=== PATIENT | female | born 1995 | race Caucasian/White ===

== ENCOUNTER 2018-07-11 16:48 | Inpatient (IN) ==
[2018-07-11] MEDS ORDERED: Sod Chloride 0.9% Inj 1,000 ML IV.SIG ONE (17:48)
[2018-07-11] MEDS ORDERED: Hydrocortisone Sod Succinate 100 MG Vial IV.PUSH ONE (17:48)
--- NOTE | 2018-07-11 18:01 | ED ---
HPI General Chief complaint: Seizure Stated complaint: Dizziness/vomiting/hbp complaint Time Seen by Provider: 07/11/18 17:38 Source: patient, family, RN notes reviewed and old records reviewed Mode of arrival: ambulatory Limitations: no limitations History of Present Illness HPI narrative: 23-year-old female presents to the emergency department evaluation of vomiting, seizure, associates. Patient has history of adrenal insufficiency. Patient states that she has these problems when she has adrenal problems. She has been vomiting for the past 1-2 weeks. According to her mother at bedside, she recently gave approximately 3 months ago which she states possibly put her into adrenal issues. She was admitted to [facility] last week and is currently on hydrocortisone 10 mg twice daily. Mother states however, she has been worsening since discharge. She is having syncopal episodes daily. She had a seizure last night. She has past medical history of seizures, adrenal insufficiency, gastroparesis, hyperprolactinemia, chronic hepatitis, chronic pancreatitis, hypothyroidism, gastritis. She is on Keppra, but has not been keeping it down. Moderate severity. Onset (ago): week(s) Severity: moderate Pain Consistency: constant Relieving factors: none Exacerbating factors: none Associated symptoms: Reports nausea/vomiting, syncope and other (seizure) Related Data Home Medications Medication Instructions Recorded Confirmed escitalopram oxalate [Lexapro] 20 mg PO HS 02/02/18 07/11/18 omeprazole 40 mg PO DAILY 02/02/18 07/11/18 Phenergan 25 mg PO Q6H PRN 07/11/18 07/11/18 tugfrlksuw-jqlyjvosvhozs-dvbo 2 cap PO Q4H PRN 07/11/18 07/11/18 [Fioricet] cyclobenzaprine 10 mg PO TID PRN 07/11/18 07/11/18 dicyclomine 20 mg PO QID PRN 07/11/18 07/11/18 hydrocortisone 10 mg PO BID 07/11/18 07/11/18 levetiracetam [Keppra] 1,000 mg PO BID 07/11/18 07/11/18 levothyroxine [Synthroid] 100 mcg PO DAILY 07/11/18 07/11/18 ondansetron HCl [Zofran] 8 mg PO TID PRN 07/11/18 07/11/18 oxycodone 10 mg PO Q4-6H PRN 07/11/18 07/11/18 quetiapine [Seroquel XR] 150 mg PO QPM 07/11/18 07/11/18 Allergies Allergy/AdvReac Type Severity Reaction Status Date / Time amitriptyline [From Elavil] Allergy Severe Hallucinati Verified 02/01/18 22:15 ons ketorolac [From Toradol] Allergy Severe Hives Verified 02/01/18 22:18 propranolol [From Inderal [place]] Allergy Severe Edema, Verified 02/01/18 22:20 Generalized niacin Allergy Edema, Verified 02/01/18 22:17 Generalized Review of Systems ROS: all other systems reviewed are negative [facility] Medical History Medical History Endocrine disease (Acute) Nausea & vomiting (Acute) Seizures (Acute) Social History Social History Substance History: No History of Abuse Second Hand Smoke Exposure: No Smoking Status: Never smoker How Often Do You Have a Drink Containing Alcohol: Never Hx Recent Travel: No Exam Narrative Exam Narrative: GENERAL: Well-nourished, well-developed female patient, afebrile SKIN: Focused skin assessment warm/dry. HEAD: Normocephalic. Atraumatic ENT: Mucosa pink and moist. No erythema or exudates. No uvular edema. No uvular , palatal, or tonsillar deviation. Airway patent. Nasal turbinates appear normal without nasal blood, purulent drainage or septal hematoma. Bilateral tympanic membranes clear without erythema or perforation. EYES: No scleral icterus. No injection or drainage. NECK: Supple, trachea midline. No JVD or lymphadenopathy. CARDIOVASCULAR: Regular rate and rhythm without murmurs, gallops, or rubs. Bilateral radial and pedal pulses are 2+ RESPIRATORY: Breath sounds equal bilaterally. No accessory muscle use. Lung sounds are clear to auscultation GASTROINTESTINAL: Abdomen soft, non-tender, nondistended. MUSCULOSKELETAL: No cyanosis, or edema. BACK: Nontender without obvious deformity. No CVA tenderness. NEUROLOGICAL: Awake and alert. Cranial nerves II through XII intact. Motor and sensory grossly within normal limits. Five out of 5 muscle strength in all muscle groups. Normal speech. Finger to nose is normal bilaterally. [id number] is normal bilaterally. Course Initial Documented Vital Signs Temperature 97.4 F L 07/11/18 16:51 Pulse Rate 98 H 07/11/18 16:51 Respiratory Rate 20 07/11/18 16:51 Blood Pressure 138/63 07/11/18 16:51 Pulse Oximetry 100 07/11/18 16:51 Last Documented Vital Signs Temperature 97.4 F L 07/11/18 16:51 Pulse Rate 78 07/11/18 19:00 Respiratory Rate 16 07/11/18 19:00 Blood Pressure 109/67 07/11/18 19:00 Pulse Oximetry 99 07/11/18 19:00 Medical Decision Making NAFISA Attestation NAFISA supervised visit: Yes Attestation: The history, exam, and medical decision-making in the associated mid-level provider note were completed with my assistance. I reviewed and agree with the findings presented. I attest that I had a [id number] encounter with the patient on the same day, and personally performed and documented my assessment and findings in the medical record. *My assessment and Findings: 23-year-old woman, generally well-appearing, endocrine disorders including what sounds like probably idiopathic or autoimmune hepatitis, adrenal insufficiency, epilepsy of unclear etiology. Recent . She has worsening symptoms including increasing seizure frequency. Multiple doses of vomiting. She was seen in [facility] recently discharged. She was restarted on hydrocortisone which she had not been on for a while. We will check cortisol level. We will does stress dose steroids. We will also dose her with Keppra. Will likely need to be admitted given her frequent recurrent seizures, inability to tolerate her seizure medications, ill appearance, and medical comorbidities. MDM Narrative Medical decision making narrative: 23-year-old female presents to the emergency department with her mother for evaluation of possible adrenal crisis. She has been vomiting for the past couple of weeks with a seizure last night and multiple syncopal episodes daily. IV access obtained. EKG, CBC, CMP, magnesium , CK, troponin, Keppra, lipase, UA, urine test, chest x-ray ordered and pending. Cortisol level is ordered and was sent before hydrocortisone was given. Patient is given normal saline 1 L IV bolus, hydrocortisone 100 mg IV, Zofran 4 mg IV. EKG shows sinus rhythm, heart rate 86, no acute ST changes. CBC shows no acute abnormal. CMP shows no acute abnormality. Lipase is 88. Magnesium is 1.8. CK is 51. Troponin is less than 0.02. UA is pending. UPT is negative. Chest x-ray shows no acute findings. My attending physician, Dr. Kim, also examined patient. He recommends admission for multiple syncopal episodes, seizure adrenal insufficiency. Patient and her mother verbalized agreement. Medical Screen Exam Complete: Yes Emergency Medical Condition: Yes Differential Diagnosis Differential Diagnosis: adrenal crisis vs. electrolyte abnormality vs. dehydration vs. intractable vomiting Medical Records Medical records reviewed: Yes I reviewed the patient's medical records. Lab Data Result diagrams: 07/11/18 17:58 07/11/18 17:58 POC Results POC Urine Results Negative Lab Results 07/11/18 07/11/18 07/11/18 Range/Units 17:58 17:58 17:58 WBC 6.3 (4.0-11.0) th/mm3 RBC 5.02 (4.00-5.30) mil/mm3 Hgb 14.4 (11.6-15.3) gm/dL Hct 43.2 (35.0-46.0) % MCV 86.1 (80.0-100.0) fL MCH 28.8 (27.0-34.0) pg MCHC 33.4 (32.0-36.0) % RDW 14.8 (11.6-17.2) % Plt Count 319 (150-450) th/mm3 MPV 7.6 (7.0-11.0) fL Neut % (Auto) 52.1 (16.0-70.0) % Lymph % (Auto) 36.0 (9.0-44.0) % [place] % (Auto) 9.2 H (0.0-8.0) % Eos % (Auto) 2.0 (0.0-4.0) % Baso % (Auto) 0.7 (0.0-2.0) % Neut # (Auto) 3.3 (1.8-7.7) th/mm3 Lymph # (Auto) 2.3 (1.0-4.8) th/mm3 [place] # (Auto) 0.6 (0.0-0.9) th/mm3 Eos # (Auto) 0.1 (0.0-0.4) th/mm3 Baso # (Auto) 0.0 (0.0-0.2) th/mm3 WBC Differential . Differential Comment Auto diff final Sodium 138 (136-145) meq/L Potassium 4.0 (3.5-5.1) meq/L Chloride 102 (98-107) meq/L Carbon Dioxide 29.3 (21.0-32.0) meq/L Anion Gap 7 (5-15) meq/L BUN 14 (7-18) mg/dL Creatinine 0.92 (0.50-1.00) mg/dL Estimated GFR 76 L (>89) mL/min Random Glucose 72 L (74-106) mg/dL Calcium 9.3 (8.5-10.1) mg/dL Magnesium 1.8 (1.5-2.5) mg/dL Total Bilirubin 0.2 (0.2-1.0) mg/dL AST 23 (15-37) U/L ALT 40 (10-53) U/L Alkaline Phosphatase 82 (45-117) U/L Total Creatine Kinase 51 Cancelled (26-192) U/L Troponin I Less than 0.02 L (0.02-0.05) ng/mL Total Protein 7.8 (6.4-8.2) g/dL Albumin 4.2 (3.4-5.0) g/dL Lipase 88 Cancelled (73-393) U/L Urine Color (Yellw/Straw) Urine Clarity (Clear) Urine pH (5.0-8.5) Ur Specific [place] (1.002-1.035) Urine Protein (Neg-Trace) mg/dL Urine Glucose (UA) (Negative) mg/dL Urine Ketones (Negative) mg/dL Urine Occult Blood (Negative) Urine Nitrate (Negative) Urine Bilirubin (Negative) Urine Urobilinogen (Less than 2) mg/dL Ur Leukocyte Esterase (Negative) Urine WBC (0-5) /hpf Ur Squamous Epith Cells (0-5) /hpf Urine Mucus (Occasional) /lpf Micro UA Comment Ur Microscopic Review Urine Culture Comments 07/11/18 Range/Units 18:36 WBC (4.0-11.0) th/mm3 RBC (4.00-5.30) mil/mm3 Hgb (11.6-15.3) gm/dL Hct (35.0-46.0) % MCV (80.0-100.0) fL MCH (27.0-34.0) pg MCHC (32.0-36.0) % RDW (11.6-17.2) % Plt Count (150-450) th/mm3 MPV (7.0-11.0) fL Neut % (Auto) (16.0-70.0) % Lymph % (Auto) (9.0-44.0) % [place] % (Auto) (0.0-8.0) % Eos % (Auto) (0.0-4.0) % Baso % (Auto) (0.0-2.0) % Neut # (Auto) (1.8-7.7) th/mm3 Lymph # (Auto) (1.0-4.8) th/mm3 [place] # (Auto) (0.0-0.9) th/mm3 Eos # (Auto) (0.0-0.4) th/mm3 Baso # (Auto) (0.0-0.2) th/mm3 WBC Differential Differential Comment Sodium (136-145) meq/L Potassium (3.5-5.1) meq/L Chloride (98-107) meq/L Carbon Dioxide (21.0-32.0) meq/L Anion Gap (5-15) meq/L BUN (7-18) mg/dL Creatinine (0.50-1.00) mg/dL Estimated GFR (>89) mL/min Random Glucose (74-106) mg/dL Calcium (8.5-10.1) mg/dL Magnesium (1.5-2.5) mg/dL Total Bilirubin (0.2-1.0) mg/dL AST (15-37) U/L ALT (10-53) U/L Alkaline Phosphatase (45-117) U/L Total Creatine Kinase (26-192) U/L Troponin I (0.02-0.05) ng/mL Total Protein (6.4-8.2) g/dL Albumin (3.4-5.0) g/dL Lipase (73-393) U/L Urine Color Straw (Yellw/Straw) Urine Clarity Clear (Clear) Urine pH 6.0 (5.0-8.5) Ur Specific [place] 1.004 (1.002-1.035) Urine Protein Negative (Neg-Trace) mg/dL Urine Glucose (UA) Negative (Negative) mg/dL Urine Ketones Negative (Negative) mg/dL Urine Occult Blood Negative (Negative) Urine Nitrate Negative (Negative) Urine Bilirubin Negative (Negative) Urine Urobilinogen Less than 2 (Less than 2) mg/dL Ur Leukocyte Esterase Negative (Negative) Urine WBC Less than 1 (0-5) /hpf Ur Squamous Epith Cells 1 (0-5) /hpf Urine Mucus Few H (Occasional) /lpf Micro UA Comment Culture not ind Ur Microscopic Review Not Reportable Urine Culture Comments Culture not ind Imaging Data Radiologist's impression: Chest X-Ray 07/11/18 17:48 CONCLUSION: No acute findings. Elevated right hemidiaphragm. Discharge Plan Discharge Disposition Patient Disposition: ED Admit(ED Internal Use Only) Discharge Order Discharge Orders: ED Use Only Admit Order (Routine); Ordered 07/11/18 Ordered By: Roberta Chin Discharge Details Diagnosis: Syncope, Seizure, Adrenal insufficiency Physicians Team ED Provider: Kwadwo Kim ED Midlevel Provider: Roberta Chin Primary Care Provider: NOT REQUIRED, Attending Provider: Jose Carlos Davies Status ED Status: Admitted Observation Patient
--- NOTE | 2018-07-11 18:16 | XR ---
EXAM DATE: 07/11/2018 6:13 PM EST AGE/SEX: 23 years / Female INDICATIONS: Weakness, and dizziness CLINICAL DATA: This is the patient's initial encounter. Patient reports that signs and symptoms have been present for 1 day and indicates a pain score of 0/10. MEDICAL/SURGICAL HISTORY: None. None. COMPARISON: No prior exams available for comparison. FINDINGS: A single AP view of the chest demonstrates the lungs to be symmetrically aerated without evidence of mass, infiltrate or effusion. The cardiomediastinal contours are unremarkable. Osseous structures a re intact. CONCLUSION: No acute findings. Elevated right hemidiaphragm. Electronically signed by: Tano Maddox MD Board Certified Radiologist 07/11/2018 6:15 PM EST
[2018-07-11 18:39] LABS: Baso % (Auto) 0.7 % (0.0-2.0); Eos # (Auto) 0.1 th/mm3 (0.0-0.4); Hematocrit 43.2 % (35.0-46.0); Hemoglobin 14.4 gm/dL (11.6-15.3); Lymph # (Auto) 2.3 th/mm3 (1.0-4.8); Mean Corpuscular HGB Conc 33.4 % (32.0-36.0); Mean Corpuscular Hemoglobin 28.8 pg (27.0-34.0); Mean Corpuscular Volume 86.1 fL (80.0-100.0); Mean Platelet Volume 7.6 fL (7.0-11.0); Mono # (Auto) 0.6 th/mm3 (0.0-0.9); Mono % (Auto) 9.2 % (0.0-8.0); Neut # (Auto) 3.3 th/mm3 (1.8-7.7); Neut % (Auto) 52.1 % (16.0-70.0); Platelet Count 319 th/mm3 (150-450); Red Blood Count 5.02 mil/mm3 (4.00-5.30); Red Cell Distribution Width 14.8 % (11.6-17.2); White Blood Count 6.3 th/mm3 (4.0-11.0)
[2018-07-11 18:59] LABS: Alanine Aminotransferase 40 U/L (10-53); Albumin 4.2 g/dL (3.4-5.0); Anion Gap 7 meq/L (5-15); Aspartate Aminotransferase 23 U/L (15-37); Blood Urea Nitrogen 14 mg/dL (7-18); Calcium 9.3 mg/dL (8.5-10.1); Carbon Dioxide 29.3 meq/L (21.0-32.0); Chloride 102 meq/L (98-107); Glomerular Filtration Rate 76 mL/min (>89); Glucose,Random 72 mg/dL (74-106); Lipase 88 U/L (73-393); Magnesium 1.8 mg/dL (1.5-2.5); Sodium 138 meq/L (136-145)
[2018-07-11] MEDS ORDERED: levETIRAcetam 1000mg/100mL Inj 100 ML IV.SIG ONE (19:00)
[2018-07-11 19:03] LABS: Alkaline Phosphatase 82 U/L (45-117); Total Protein 7.8 g/dL (6.4-8.2)
[2018-07-11 19:04] LABS: Creatine Kinase 51 U/L (26-192)
[2018-07-11] MEDS ORDERED: Morphine Sulfate Inj 2 MG/ML Vial IV.PUSH ONE (19:07)
[2018-07-11 19:40] LABS: Bilirubin,Urine Negative (Negative); Clarity,Urine Clear (Clear); Color,Urine Straw (Yellw/Straw); Glucose,Urine (UA) Negative (Negative); Leukocyte Esterase,Urine Negative (Negative); Mucus,Urine Few /lpf (Occasional); Nitrite,Urine Negative (Negative); Specific Gravity,Urine 1.004 (1.002-1.035); Squamous Epithelial Cell,Urine 1 /hpf (0-5)
--- NOTE | 2018-07-11 20:07 | P.HPFP ---
History of Present Illness Primary Care Physician: NOT REQUIRED <KekeJose Carlos K - 07/12/18 14:49> NOT REQUIRED <Andra Batista V - 07/11/18 20:07> Chief Complaint: Synconpe, seizures, intractable N&V <Andra Batista V - 07/11/18 23:13> History of Present Illness: Pt is 23 yr old female with significant PMH of adrenal insufficiency, hypothyroidism, migraines, gastroparesis, seizures, and a recent , delivered 3 months ago at 29 weeks due to seizures at [facility]. Patient presents to the emergency department due to syncopal episodes the last 2 weeks, almost every day, as well as a witnessed seizure yesterday, and unretractable nausea and vomiting. Patient believes this is related to her adrenal insufficiency. Patient has a history of adrenal insufficiency diagnosed at age 16, however due to not having insurance patient is not following up by an documentation analyst. Patient was doing well before her , however she did not have OB care due to being high risk and lack of insurance. Patient had an emergency CS, due to prolonged seizure activity lasting on and off over 12 hours, she was in the hospital for 8 days. During which she received steroids, blood transfusions, and iron transfusions. Patient was sent home on Keppra 1000 BID. Pt was doing fine, was having issues with gastroparesis, chronic for her. Her GI doctor, Dr Guo in [place] was considering Botox injections. Pt lost insurance did not see doctors anymore. Last time seen by [facility] [facility] was 2 yrs ago. Two week ago, pt started having a headache that would not go away, felt different than a migraine. At this point patient was not taking any steroids for her AI. Patient was also having nausea and vomiting. This lasted for a whole week, pt could not eat or drink anything. Pt passed out once at home before going to the hospital, she was admitted at [facility] in [place]. While at [facility] pt found to have low cortisol and low ACTH, she was given IV cortisone for 3 days, and switched to by mouth prednisone. According to patient, she was discharged unable to eat a full meal, was only able to eat Jello. Sent home on: Hydrocortisone 20mg PO divided in 10mg BID, Phenergan 25mg q 6 hours, Zofran dissolvable 4mg every 4 hrs, continue Keppra 1000mg BID, and levothyroxine 0.25mcg once day. Phenergan help with vomiting but not nausea. Pt allergic with dexamethasone, has hives at site of injection when that happens. Fioricet and oxycodone given for migraines. Pt allergic to sumatriptan. Has tried Depakote, and Topamax in the past prescribed by her neurologist. Dr. San[place]. Since her hospitalization pt feels that she has numbness and tingling in her hands. She states she passed out several times, passing out episodes usually start with her chest tightening, feeling cold and then sees dark. Pt passes out for a minute or two, pt slowly comes back on her own. Pt states she can hear her mom talking when this happens. This used to happen a lot when pt was first diagnosed with AI. 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 Pt is not . Just got first period about week before this all started. Period resolved and now has no period. Taking thyroid medication during , but was not able to see an OB doctor to increase dose/ make changes. Patient has been having nausea and vomiting every day, unable to tolerate any p.o. Patient throws up 20 mins after taking medicines. Pt takes escitalopram for bipolar II - depression by psychiatrist Dr. Castro, during her she was on buspirone, escitalopram, and Seroquel 150 mg daily. PMH: hyperprolactinemia, adrenal insufficiency, hyperthyroidism, gastroparesis, Bipolar II/ depression. 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 Chronic anemia. Seizures. Migraines. PSx: section 3 months ago. 3 ear surgeries as child, ear tubes and ear drum reconstruction. Gallbladder removed 2011. Social history: lives and 3 months baby, stay at home, worked at [employer]. Was in school at some point. denies ever smoking, denies marijuana, never tried any drugs. Denies alcohol. Sexually active, was on BC pills until last hospital admission, when she was told this may be the cause of all her symptoms, patient not on control at the moment. Family history: mother with melanoma, endometriosis. father: stroke, blood cloths, cholesterol, HTN. Paternal aunt with autoimmune: Diana, Type1 diabetes. maternal aunt with thyroid disorders. Sister: Chron's diagnosed at 7, some type of thyroid. <Andra Batista V 07/11/18 23:33> - Diagnosis (1) Nausea & vomiting (2) Seizure (3) Chest pain, rule out acute myocardial infarction (4) Syncope (5) Adrenal insufficiency (6) Abdominal pain (7) Hypothyroid (8) Gastroparesis (9) Bipolar 2 disorder, major depressive episode (10) DVT prophylaxis (11) Nutrition, metabolism, and development symptoms <Jose Carlos Davies 07/12/18 14:49> (1) Nausea & vomiting (2) Seizure (3) Chest pain, rule out acute myocardial infarction (4) Syncope (5) Adrenal insufficiency (6) Abdominal pain (7) Hypothyroid (8) Gastroparesis (9) Bipolar 2 disorder, major depressive episode (10) DVT prophylaxis (11) Nutrition, metabolism, and development symptoms <[address] 07/12/18 00:03> Review of Systems Constitutional: Reports anorexia, Reports chills, Reports fatigue, Reports headache(s), Reports lack of energy, Reports night sweats, Reports weight gain <[address] 07/11/18 20:48> Eyes: Denies blurry vision, Denies double vision, Denies pain <[address] 07/11/18 20:48> Cardiovascular: Reports chest pain, Reports fainting, Reports fast heart rate, Reports lightheadedness, Reports rapid, pounding, or irregular heartbeat < [address] 07/11/18 20:48> Comments: Chest feels tight <[address] 07/11/18 20:48> Respiratory: Reports shortness of breath, Denies chest congestion, Denies cough , Denies excessive phlegm production, Denies wheezing <[address] 07/11/18 20:48> Gastrointestinal: Reports abdominal pain, Reports vomiting, Denies bright, red blood in stools, Denies constipation, Denies excessive passing of gas, Denies incontinent of stools <Sawyer HeinBibi 07/11/18 20:48> Comments: Chronic <Sawyer HeinBibi 07/11/18 20:48> Genitourinary: Reports abnormal periods, Reports abnormal vaginal bleeding, Denies painful urination, Denies urinary incontinence, Denies urinary urgency, Denies vaginal discharge <Sawyer HeinBibi 07/11/18 20:48> Musculoskeletal: Reports numbness, Reports tingling, Reports other <Sawyer HeinBibi 07/11/18 20:48> Comments: Numbness and tingling in arms, pain in shoulder, believes she hurt it with vomiting <Sawyer HeinBibi 07/11/18 20:48> Skin/Breast: Denies bleeding lesions, Denies boil, Denies breast skin changes, Denies breast pain <Sawyer HeinBibi 07/11/18 20:48> Neurologic: Reports dizziness, Reports fainting, Reports headache(s), Reports tingling/numbness/burning sensations <Sawyer HeinBibi 07/11/18 20: 48> Psychiatric: Reports anxiety, Reports behavioral changes, Denies depression < Sawyer HeinBibi 07/11/18 20:48> Comments: Feels short temper due to cortisone <Sawyer HeinBibi 07/11/18 20:48> Endocrine: Reports excessive sweating, Reports flushing, Reports increased urination, Reports rapid, pounding, or irregular heartbeat, Denies cold intolerance <Sawyer HeinBibi 07/11/18 20:48> PMFSH - History History Provided By: Patient, Family Member <Sawyer HeinBibi 23:33> - Medical History Medical History: Medical History (Last Updated 07/11/18 @ 23:29 by Andra Hein MD, R1) Adrenal insufficiency Bipolar 2 disorder, major depressive episode Endocrine disease Gastroparesis Hypothyroidism Nausea & vomiting Seizures <Jose Carlos Davies - 07/12/18 14:49> Medical History (Last Updated 07/11/18 @ 23:29 by Andra Hein MD, R1) Adrenal insufficiency Bipolar 2 disorder, major depressive episode Endocrine disease Gastroparesis Hypothyroidism Nausea & vomiting Seizures <Andra Batista V 07/11/18 23:33> - Surgical History Surgical History: Surgical History (Last Updated 07/11/18 @ 23:29 by Andra Hein MD , R1) History of placement of ear tubes Hx of cholecystectomy Previous section <Jose Carlos Davies 07/12/18 14:49> Surgical History (Last Updated 07/11/18 @ 23:29 by Andra Hein MD , R1) History of placement of ear tubes Hx of cholecystectomy Previous section <Sawyer Srivastavaira Andra Hein V 07/11/18 23:33> - Social History I have reviewed the patient's Social History: Yes <Andra Batista V 07/11/18 23:33> - Tobacco History Second Hand Smoke Exposure: No <Andra Batista V 07/11/18 20:07> Smoking Status: Never smoker <Andra Batista V 07/11/18 20:07> - Alcohol History How Often Do You Have a Drink Containing Alcohol: Never <Andra Batista V 07/11/18 20:07> - Substance Use History Substance History: No History of Abuse <Andra Batista V 07/11/18 20 :07> - Travel History History of Recent Travel: No <Andra Batista V 07/11/18 20:07> - Immunization History Tetanus Immunization: <5 Years <Sawyer Srivastavaira Andra Hein V 07/11/18 20:07> Medications and Allergies Allergies Allergy/AdvReac Type Severity Reaction Status Date / Time amitriptyline [From Elavil] Allergy Severe Hallucinati Verified 02/01/18 22:15 ons ketorolac [From Toradol] Allergy Severe Hives Verified 02/01/18 22:18 propranolol [From Inderal LA] Allergy Severe Edema, Verified 02/01/18 22:20 Generalized niacin Allergy Edema, Verified 02/01/18 22:17 Generalized <Jose Carlos Davies - 07/12/18 14:49> Home Medications Medication Instructions Recorded Confirmed Type escitalopram oxalate [Lexapro] 20 mg PO HS 02/02/18 07/11/18 History omeprazole 40 mg PO DAILY 02/02/18 07/11/18 History Phenergan 25 mg PO Q6H PRN 07/11/18 07/11/18 History [id number] 2 cap PO Q4H PRN 07/11/18 07/11/18 History [Fioricet] cyclobenzaprine 10 mg PO TID PRN 07/11/18 07/11/18 History dicyclomine 20 mg PO QID PRN 07/11/18 07/11/18 History hydrocortisone 10 mg PO BID 07/11/18 07/11/18 History levetiracetam [Keppra] 1,000 mg PO BID 07/11/18 07/11/18 History levothyroxine [Synthroid] 25 mcg PO DAILY 07/11/18 07/11/18 History ondansetron HCl [Zofran] 8 mg PO TID PRN 07/11/18 07/11/18 History oxycodone 10 mg PO Q4-6H PRN 07/11/18 07/11/18 History quetiapine [Seroquel XR] 150 mg PO QPM 07/11/18 07/11/18 History <Jose Carlos Davies - 07/12/18 14:49> Active Medications: Active Medications Acetaminophen (Tylenol) 650 mg PO Q4H PRN PRN Reason: Temp > 100.4 Last Admin: 07/11/18 22:46 Dose: 650 mg Enoxaparin Sodium (Lovenox Inj) 40 mg SQ Q24H [facility] Last Admin: 07/12/18 00:42 Dose: 40 mg Escitalopram Oxalate (Lexapro) 20 mg PO HS [facility] Last Admin: 07/11/18 22:45 Dose: 20 mg Hydrocortisone Sodium Succinate (Solucortef Inj) 25 mg IV.PUSH BID [facility] Last Admin: 07/12/18 09:36 Dose: 25 mg Dextrose (D5w Inj) 1,000 mls @ 110 mls/hr IV.CONT .Q9H6M [facility] Last Admin: 07/12/18 09:31 Dose: 110 mls/hr Levetiracetam (Keppra 1000 Mg/100 Ml Premix) 100 mls @ 400 mls/hr IV.SIG Q12H [facility] Last Infusion: 07/12/18 10:00 Dose: Infused Lactulose (Lactulose Liq) 30 ml PO DAILY PRN PRN Reason: SEVERE CONSITIPATION Levothyroxine Sodium (Synthroid) 25 mcg PO DAILY@0600 [facility] Last Admin: 07/12/18 06:30 Dose: 25 mcg Pantoprazole Sodium (Protonix) 40 mg PO DAILY [facility] Last Admin: 07/12/18 09:35 Dose: 40 mg Promethazine HCl (Phenergan Supp) 25 mg RECTAL Q6H PRN PRN Reason: NAUSEA OR VOMITING Promethazine HCl (Phenergan Inj) 25 mg IM Q6H PRN PRN Reason: VOMITING Last Admin: 07/12/18 09:43 Dose: 25 mg Quetiapine Fumarate (Seroquel) 75 mg PO BID [facility] Last Admin: 07/12/18 09:36 Dose: Not Given Senna/Docusate Sodium (Jammie-Colace) 1 tab PO BID [facility] Last Admin: 07/12/18 09:35 Dose: Not Given Sodium Chloride (Ns Flush) 2 ml IV.FLUSH BID [facility] Last Admin: 07/12/18 09:35 Dose: Not Given Sodium Chloride (Ns Flush) 2 ml IV.FLUSH PRN PRN PRN Reason: FLUSH AFTER USING IV ACCESS <Jose Carlos Davies - 07/12/18 14:49> Exam Vital signs: Vital Signs 07/11/18 16:51 07/11/18 17:48 07/11/18 19:00 Temperature 97.4 F L Pulse Rate 98 H 78 Respiratory Rate 20 16 Blood Pressure 138/63 109/67 Pulse Oximetry 100 97 99 07/11/18 21:00 07/11/18 21:53 07/11/18 23:47 Temperature 98.3 F 98.1 F Pulse Rate 84 80 83 Respiratory Rate 16 20 16 Blood Pressure 119/77 120/72 110/69 Pulse Oximetry 98 97 95 07/12/18 04:00 07/12/18 07:39 07/12/18 11:50 Temperature 98.1 F 98.1 F 98.2 F Pulse Rate 77 85 94 H Respiratory Rate 12 16 Blood Pressure 111/66 100/58 L 91/57 L Pulse Oximetry 99 97 99 Intake & Output 02/17/19 02/18/19 02/18/19 18:59 06:59 18:59 Intake Total 2039 400 / 400 Balance 2039 / 2039 400 / 400 Weight 72.575 kg 72.58 kg Intake: IV 1100 / 1100 400 / 400 LR 1000 mL Inj 1,000 ML @ 100 300 / 300 mls/hr IV.CONT .Q10H [facility] Rx#: [id number] NS Inj 1,000 ML @ Wide Open IV. 1000 / 1000 SIG BOLUS ONE Rx#:[id number] Keppra 1000 mg/100 mL Premix 100 / 100 100 / 100 100 ML @ 400 mls/hr IV.SIG Q12H [facility] Rx#:[id number] Oral 240 / 240 Other 700 / 700 Other: Other Intake Source Saline Solution # Emeses 2 Weight On Admission 72.575 kg <Jose Carlos Davies K - 07/12/18 14:49> Vital Signs 07/11/18 16:51 07/11/18 17:48 07/11/18 19:00 Temperature 97.4 F L Pulse Rate 98 H 78 Respiratory Rate 20 16 Blood Pressure 138/63 109/67 Pulse Oximetry 100 97 99 Intake & Output 07/11/18 07/11/18 07/12/18 06:59 18:59 06:59 Intake Total 1100 / 1100 Balance 1100 / 1100 Weight 72.575 kg Intake: IV 1100 / 1100 NS Inj 1,000 ML @ Wide Open IV. 1000 / 1000 SIG BOLUS ONE Rx#:[id number] Keppra 1000 mg/100 mL Premix 100 / 100 100 ML @ 400 mls/hr IV.SIG ONCE ONE Rx#:[id number] <Sawyer Sargent Andra Hein V - 07/11/18 20:07> Narrative: GENERAL: Young female, laying in bed with an ice pack, in no acute distress, but looking ill. Shivering during exam SKIN: No rashes, sweating in her back, wetting her gown and sheets HEAD: Atraumatic. Normocephalic. EYES: Pupils equal and round. No scleral icterus. No injection or drainage. NECK: Trachea midline. No JVD. CARDIOVASCULAR: Tachycardia, pulse up to 115 while patient sit up. regular rate and rhythm. RESPIRATORY: No accessory muscle use. Clear to auscultation. Breath sounds equal bilaterally. GASTROINTESTINAL: Abdomen soft, tender to palpation over left lower quadrant, nondistended. Hepatic and splenic margins not palpable. MUSCULOSKELETAL: Extremities without clubbing, cyanosis, or edema. No obvious deformities. Cold to touch NEUROLOGICAL: Awake and alert. No obvious cranial nerve deficits. Motor grossly within normal limits. Normal speech. PSYCHIATRIC: Appropriate mood and affect; insight and judgment normal. <Andra Batista V - 07/11/18 23:33> Results - Labs Result diagrams: 07/12/18 07:10 07/12/18 07:10 <KekeJose Carlos - 07/12/18 14:49> Abnormal lab results 07/11/18 07/11/18 07/11/18 Range/Units 17:58 17:58 18:36 Knox % (Auto) 9.2 H (0.0-8.0) % Estimated GFR 76 L (>89) mL/min Random Glucose 72 L (74-106) mg/dL AST (15-37) U/L ALT (10-53) U/L Troponin I Less than 0.02 L (0.02-0.05) ng/mL Urine Mucus Few H (Occasional) /lpf 07/12/18 07/12/18 Range/Units 07:10 07:10 Knox % (Auto) 8.6 H (0.0-8.0) % Estimated GFR (>89) mL/min Random Glucose (74-106) mg/dL AST 200 H (15-37) U/L ALT 158 H (10-53) U/L Troponin I (0.02-0.05) ng/mL Urine Mucus (Occasional) /lpf Short CBC 07/11/18 07/12/18 Range/Units 17:58 07:10 WBC 6.3 7.1 (4.0-11.0) th/mm3 Hgb 14.4 12.8 (11.6-15.3) gm/dL Hct 43.2 38.7 (35.0-46.0) % Plt Count 319 275 (150-450) th/mm3 BMP 07/11/18 07/12/18 17:58 07:10 Sodium 138 142 Potassium 4.0 3.7 Chloride 102 105 Carbon Dioxide 29.3 31.9 BUN 14 10 Creatinine 0.92 0.77 Calcium 9.3 8.6 Cardiac Enzymes 07/11/18 07/11/18 Range/Units 17:58 17:58 Total Creatine Kinase 51 Cancelled (26-192) U/L Troponin I Less than 0.02 L (0.02-0.05) ng/mL Liver Function 07/11/18 07/12/18 Range/Units 17:58 07:10 Total Bilirubin 0.2 0.2 (0.2-1.0) mg/dL AST 23 200 H (15-37) U/L ALT 40 158 H (10-53) U/L Alkaline Phosphatase 82 79 (45-117) U/L Albumin 4.2 3.7 (3.4-5.0) g/dL Urine 07/11/18 Range/Units 18:36 Urine Color Straw (Yellw/Straw) Urine Clarity Clear (Clear) Urine pH 6.0 (5.0-8.5) Ur Specific [place] 1.004 (1.002-1.035) Urine Protein Negative (Neg-Trace) mg/dL Urine Glucose (UA) Negative (Negative) mg/dL <Jose Carlos Davies K - 07/12/18 14:49> Abnormal lab results 07/11/18 07/11/18 07/11/18 Range/Units 17:58 17:58 18:36 Knox % (Auto) 9.2 H (0.0-8.0) % Estimated GFR 76 L (>89) mL/min Random Glucose 72 L (74-106) mg/dL Troponin I Less than 0.02 L (0.02-0.05) ng/mL Urine Mucus Few H (Occasional) /lpf Short CBC 07/11/18 Range/Units 17:58 WBC 6.3 (4.0-11.0) th/mm3 Hgb 14.4 (11.6-15.3) gm/dL Hct 43.2 (35.0-46.0) % Plt Count 319 (150-450) th/mm3 BMP 07/11/18 17:58 Sodium 138 Potassium 4.0 Chloride 102 Carbon Dioxide 29.3 BUN 14 Creatinine 0.92 Calcium 9.3 Cardiac Enzymes 07/11/18 07/11/18 Range/Units 17:58 17:58 Total Creatine Kinase 51 Cancelled (26-192) U/L Troponin I Less than 0.02 L (0.02-0.05) ng/mL Liver Function 07/11/18 Range/Units 17:58 Total Bilirubin 0.2 (0.2-1.0) mg/dL AST 23 (15-37) U/L ALT 40 (10-53) U/L Alkaline Phosphatase 82 (45-117) U/L Albumin 4.2 (3.4-5.0) g/dL Urine 07/11/18 Range/Units 18:36 Urine Color Straw (Yellw/Straw) Urine Clarity Clear (Clear) Urine pH 6.0 (5.0-8.5) Ur Specific [place] 1.004 (1.002-1.035) Urine Protein Negative (Neg-Trace) mg/dL Urine Glucose (UA) Negative (Negative) mg/dL <Sawyer Sargent Andra Hein V - 07/11/18 20:07> - Imaging Impressions Chest X-Ray 07/11/18 17:48 CONCLUSION: No acute findings. Elevated right hemidiaphragm. Abdomen X-Ray 07/12/18 00:00 CONCLUSION: Radiographically benign abdomen without obstruction or pneumoperitoneum. <Jose Carlos Davies - 07/12/18 14:49> Impressions Chest X-Ray 07/11/18 17:48 CONCLUSION: No acute findings. Elevated right hemidiaphragm. <Sawyer HeinAndra Mcleod - 07/11/18 20:07> Caprini VTE Risk Assessment Caprini VTE Risk Assessment: No/Low Risk (score <= 1) <Sawyer HeinAndra V - 07/11/18 23:13> Caprini Risk Assessment Model: Point Value = 1 Point Value = 2 Point Value = 3 Point Value = 5 Age 41-60 Minor surgery BMI > 25 kg/m2 Swollen legs Varicose veins or History of unexplained or recurrent spontaneous Oral contraceptives or hormone replacement Sepsis (< 1 month) Serious lung disease, including pneumonia (< 1 month) Abnormal pulmonary function Acute myocardial infarction Congestive heart failure (< 1 month) History of inflammatory bowel disease Medical patient at bed rest Age 61-74 Arthroscopic surgery Major open surgery (> 45 min) Laparoscopic surgery (> 45 min) Malignancy Confined to bed (> 72 hours) Immobilizing plaster cast Central venous access Age >= 75 History of VTE Family history of VTE Factor V Leiden Prothrombin [id number] Lupus anticoagulant Anticardiolipin antibodies Elevated serum homocysteine Heparin-induced thrombocytopenia Other congenital or acquired thrombophilia Stroke (< 1 month) Elective arthroplasty Hip, pelvis, or leg fracture Acute spinal cord injury (< 1 month) <Jose Carlos Davies - 07/12/18 14:49> Point Value = 1 Point Value = 2 Point Value = 3 Point Value = 5 Age 41-60 Minor surgery BMI > 25 kg/m2 Swollen legs Varicose veins or History of unexplained or recurrent spontaneous Oral contraceptives or hormone replacement Sepsis (< 1 month) Serious lung disease, including pneumonia (< 1 month) Abnormal pulmonary function Acute myocardial infarction Congestive heart failure (< 1 month) History of inflammatory bowel disease Medical patient at bed rest Age 61-74 Arthroscopic surgery Major open surgery (> 45 min) Laparoscopic surgery (> 45 min) Malignancy Confined to bed (> 72 hours) Immobilizing plaster cast Central venous access Age >= 75 History of VTE Family history of VTE Factor V Leiden Prothrombin [id number] Lupus anticoagulant Anticardiolipin antibodies Elevated serum homocysteine Heparin-induced thrombocytopenia Other congenital or acquired thrombophilia Stroke (< 1 month) Elective arthroplasty Hip, pelvis, or leg fracture Acute spinal cord injury (< 1 month) <Andra Batista V - 07/11/18 20:07> Prophylaxis Regimen: Total Risk Factor Score Risk Level Prophylaxis Regimen 0-1 Low Early ambulation 2 Moderate Order ONE of the following: *Sequential Compression Device (SCD) *Heparin 5000 units SQ BID 3-4 Higher Order ONE of the following medications: *Heparin 5000 units SQ TID *Enoxaparin/Lovenox 40 mg SQ daily (WT < 150 kg, CrCl > 30 mL/min) *Enoxaparin/Lovenox 30 mg SQ daily (WT < 150 kg, CrCl > 10-29 mL/min) *Enoxaparin/Lovenox 30 mg SQ BID (WT < 150 kg, CrCl > 30 mL/min) AND/OR *Sequential Compression Device (SCD) 5 or more Highest Order ONE of the following medications: *Heparin 5000 units SQ TID (Preferred with Epidurals) *Enoxaparin/Lovenox 40 mg SQ daily (WT < 150 kg, CrCl > 30 mL/min) *Enoxaparin/Lovenox 30 mg SQ daily (WT < 150 kg, CrCl > 10-29 mL/min) *Enoxaparin/Lovenox 30 mg SQ BID (WT < 150 kg, CrCl > 30 mL/min) AND *Sequential Compression Device (SCD) <Jose Carlos Davies K - 07/12/18 14:49> Total Risk Factor Score Risk Level Prophylaxis Regimen 0-1 Low Early ambulation 2 Moderate Order ONE of the following: *Sequential Compression Device (SCD) *Heparin 5000 units SQ BID 3-4 Higher Order ONE of the following medications: *Heparin 5000 units SQ TID *Enoxaparin/Lovenox 40 mg SQ daily (WT < 150 kg, CrCl > 30 mL/min) *Enoxaparin/Lovenox 30 mg SQ daily (WT < 150 kg, CrCl > 10-29 mL/min) *Enoxaparin/Lovenox 30 mg SQ BID (WT < 150 kg, CrCl > 30 mL/min) AND/OR *Sequential Compression Device (SCD) 5 or more Highest Order ONE of the following medications: *Heparin 5000 units SQ TID (Preferred with Epidurals) *Enoxaparin/Lovenox 40 mg SQ daily (WT < 150 kg, CrCl > 30 mL/min) *Enoxaparin/Lovenox 30 mg SQ daily (WT < 150 kg, CrCl > 10-29 mL/min) *Enoxaparin/Lovenox 30 mg SQ BID (WT < 150 kg, CrCl > 30 mL/min) AND *Sequential Compression Device (SCD) <Sawyer HeinBibi - 07/11/18 20:07> Assessment and Plan - Assessment (1) Nausea & vomiting Code(s): R11.2 - Nausea with vomiting, unspecified Status: Acute (2) Seizure Code(s): R56.9 - Unspecified convulsions Status: Acute (3) Chest pain, rule out acute myocardial infarction Code(s): R07.9 - Chest pain, unspecified Status: Acute (4) Syncope Code(s): R55 - Syncope and collapse Status: Acute (5) Adrenal insufficiency Code(s): E27.40 - Unspecified adrenocortical insufficiency Status: Chronic (6) Abdominal pain Code(s): R10.9 - Unspecified abdominal pain Status: Acute (7) Hypothyroid Code(s): E03.9 - Hypothyroidism, unspecified Status: Chronic (8) Gastroparesis Code(s): K31.84 - Gastroparesis Status: Chronic (9) Bipolar 2 disorder, major depressive episode Code(s): F31.81 - Bipolar II disorder Status: Chronic (10) DVT prophylaxis Status: Acute (11) Nutrition, metabolism, and development symptoms Code(s): R63.8 - Other symptoms and signs concerning food and fluid intake Status: Acute <Jose Carlos Davies - 07/12/18 14:49> (1) Nausea & vomiting Code(s): R11.2 - Nausea with vomiting, unspecified Status: Acute Plan: -Liquid diet, advance as tolerated -Zofran 400 mg IV every 6 as needed -Phenergan 25 mg p.o. every 6 as needed -Phenergan suppository 25 mg every 6 as needed (2) Seizure Code(s): R56.9 - Unspecified convulsions Status: Acute Plan: Patient received 1000 mg IV of Keppra -Continue home medication Keppra 1000 mg p.o. twice daily -Seizure precautions (3) Chest pain, rule out acute myocardial infarction Code(s): R07.9 - Chest pain, unspecified Status: Acute Plan: Likely associated with syncopal episodes. Patient also states painful due to severe vomiting Troponins negative x1 EKG with sinus rhythm, no ST elevation changes, possible left atrial enlargement We will consider an echocardiogram (4) Syncope Code(s): R55 - Syncope and collapse Status: Acute Plan: Unknown etiology at this time, will monitor vital signs and symptoms. (5) Adrenal insufficiency Code(s): E27.40 - Unspecified adrenocortical insufficiency Status: Chronic Plan: Patient received 100 mg of hydrocortisone IV on the ED -Cortisol level 1.9, correlated with a low value as taking in the afternoon normal reference is 3.116.7 -We will consider doing an ACTH stimulation test (6) Abdominal pain Code(s): R10.9 - Unspecified abdominal pain Status: Acute Plan: Patient with acute on chronic left lower quadrant abdominal pain, tenderness on palpation on physical exam. Due to intractable nausea and vomiting concerning for , ectopic , small bowel obstruction, as well as chronic gastroparesis. -Beta hCG -Abdominal x-ray -We will consider an abdominal CT scan tomorrow if no improvement in symptoms (7) Hypothyroid Code(s): E03.9 - Hypothyroidism, unspecified Status: Chronic Plan: Chronic, patient has been taking 25 mcg of levothyroxine before during and after her . -TSH, free T4 -Continue 25 mcg levothyroxine for now (8) Gastroparesis Code(s): K31.84 - Gastroparesis Status: Chronic Plan: Chronic per patient, will monitor for now. (9) Bipolar 2 disorder, major depressive episode Code(s): F31.81 - Bipolar II disorder Status: Chronic Plan: Chronic, stable. -Continue escitalopram 20 mg p.o. daily -Continue Seroquel at 150 mg p.o. daily (10) DVT prophylaxis Status: Acute Plan: Lovenox 40 mg subQ daily (11) Nutrition, metabolism, and development symptoms Code(s): R63.8 - Other symptoms and signs concerning food and fluid intake Status: Acute Plan: FEN: - IV LR @ 110 ml/hr - Monitor replace electrolytes as needed - Clear liquids diet, advance as tolerated PPX: - Lovenox 40mg daily for DVT ppx - Bilateral lower extremity SCDs - Zofran prn for nausea - Protonix 40mgs daily for GI ppx <Sawyer HeinBibi - 07/12/18 00:03> - Assessment and Plan 23 yr old female with hx of adrenal insufficiency, hypothyroidism, migraines, gastroparesis, seizures, and a recent . Recently admitted to another hospital due to syncopal episodes, as well as nausea and vomiting. Admitted to our hospital for observation due to intractable daily nausea and vomiting, as well as a witnessed seizure yesterday. While in the emergency department patient received a loading dose of Keppra 1000 mg IV, as well as 100 mg IV of hydrocortisone. Patient's laboratory and vital signs and presentations are stable with no electrolyte abnormalities, or vital signs dysfunction. Patient had a negative urine test. At this moment the etiology of her intractable nausea and vomiting is unknown, possible related to adrenal insufficiency worsened by her recent . Her seizure is likely related to her inability to take her antiseizure medication. Differential diagnoses ,at this point is very broad, includes: Adrenal insufficiency, thyroid disorder, autoimmune disorder, SBO, , retained POC, migraines. <Andra Batista V - 07/12/18 00:03> - Attending Attestation The exam, history, and the medical decision-making described in the above note were completed with the assistance of the resident physician. I reviewed and agree with the findings presented. I attest that I had a [id number] encounter with the patient on the same day, and personally performed and documented my assessment and findings in the medical record. Agree with histories as written above. see my PN from 07/12 <Jose Carlos Davies - 07/12/18 14:49> <Sawyerlianet Sargent Andra Hein V - Last Filed: 07/12/18 00:03> (1) Nausea & vomiting Qualifiers: Vomiting Intractability: intractable (4) Syncope Qualifiers: Syncope type: unspecified Qualified Code(s): R55 - Syncope and collapse (6) Abdominal pain Qualifiers: Abdominal location: left lower quadrant Qualified Code(s): R10.32 - Left lower quadrant pain (7) Hypothyroid Qualifiers: Hypothyroidism type: unspecified Qualified Code(s): E03.9 - Hypothyroidism, unspecified <Jose Carlos Davies K - Last Filed: 07/12/18 14:49> (1) Nausea & vomiting Qualifiers: Vomiting Intractability: intractable (4) Syncope Qualifiers: Syncope type: unspecified Qualified Code(s): R55 - Syncope and collapse (6) Abdominal pain Qualifiers: Abdominal location: left lower quadrant Qualified Code(s): R10.32 - Left lower quadrant pain (7) Hypothyroid Qualifiers: Hypothyroidism type: unspecified Qualified Code(s): E03.9 - Hypothyroidism, unspecified <Andra Batista V - Last Filed: 07/12/18 00:03> (1) Nausea & vomiting Qualifiers: Vomiting Intractability: intractable (4) Syncope Qualifiers: Syncope type: unspecified Qualified Code(s): R55 - Syncope and collapse (6) Abdominal pain Qualifiers: Abdominal location: left lower quadrant Qualified Code(s): R10.32 - Left lower quadrant pain (7) Hypothyroid Qualifiers: Hypothyroidism type: unspecified Qualified Code(s): E03.9 - Hypothyroidism, unspecified <Jose Carlos Davies K - Last Filed: 07/12/18 14:49> (1) Nausea & vomiting Qualifiers: Vomiting Intractability: intractable (4) Syncope Qualifiers: Syncope type: unspecified Qualified Code(s): R55 - Syncope and collapse (6) Abdominal pain Qualifiers: Abdominal location: left lower quadrant Qualified Code(s): R10.32 - Left lower quadrant pain (7) Hypothyroid Qualifiers: Hypothyroidism type: unspecified Qualified Code(s): E03.9 - Hypothyroidism, unspecified
[2018-07-11] MEDS: Acetaminophen 325 MG Tablet PO PRN (22:46)
[2018-07-11] MEDS: levETIRAcetam 500 MG Tablet PO SCH (23:03)
[2018-07-11] MEDS ORDERED: Promethazine 25 MG Supp RECTAL PRN (23:03)
[2018-07-11] MEDS: QUEtiapine 25 MG Tablet PO SCH (23:04)
[2018-07-12 00:07] LABS: Free T4 (Free Thyroxine) 0.81 ng/dL (0.76-1.46); Thyroid Stimulating Hormone 1.74 uIU/mL (0.358-3.740)
[2018-07-12] MEDS: Enoxaparin Inj 40 MG/0.4 ML Syringe SQ SCH (00:42)
--- NOTE | 2018-07-12 00:47 | XR ---
EXAM DATE: 07/12/2018 12:38 AM EST AGE/SEX: 23 years / Female INDICATIONS: Syncopal episode and now some abdominal pain. CLINICAL DATA: This is the patient's subsequent encounter. Patient reports that signs and symptoms h ave been present for 2 days and indicates a pain score of 6/10. MEDICAL/SURGICAL HISTORY: None. None. COMPARISON: No prior exams available for comparison. FINDINGS: Examination of the abdomen demonstrates a normal bowel gas pattern. Some stool scattered throughout t he colon. No free air is identified. No organomegaly is evident. Osseous structures are intact. CONCLUSION: Radiographically benign abdomen without obstruction or pneumoperitoneum. Electronically signed by: Carroll Gómez MD Board Certified Radiologist 07/12/2018 12:45 AM EST
[2018-07-12 08:10] LABS: Baso % (Auto) 0.4 % (0.0-2.0); Eos % (Auto) 0.6 % (0.0-4.0); Hematocrit 38.7 % (35.0-46.0); Hemoglobin 12.8 gm/dL (11.6-15.3); Lymph # (Auto) 2.1 th/mm3 (1.0-4.8); Lymph % (Auto) 29.4 % (9.0-44.0); Mean Corpuscular HGB Conc 33.1 % (32.0-36.0); Mean Corpuscular Hemoglobin 28.5 pg (27.0-34.0); Mean Corpuscular Volume 86.1 fL (80.0-100.0); Mean Platelet Volume 7.5 fL (7.0-11.0); Mono # (Auto) 0.6 th/mm3 (0.0-0.9); Mono % (Auto) 8.6 % (0.0-8.0); Neut # (Auto) 4.3 th/mm3 (1.8-7.7); Platelet Count 275 th/mm3 (150-450); Red Cell Distribution Width 14.8 % (11.6-17.2); White Blood Count 7.1 th/mm3 (4.0-11.0)
[2018-07-12 08:27] LABS: Alanine Aminotransferase 158 U/L (10-53); Albumin 3.7 g/dL (3.4-5.0); Anion Gap 5 meq/L (5-15); Aspartate Aminotransferase 200 U/L (15-37); Blood Urea Nitrogen 10 mg/dL (7-18); Calcium 8.6 mg/dL (8.5-10.1); Carbon Dioxide 31.9 meq/L (21.0-32.0); Chloride 105 meq/L (98-107); Glomerular Filtration Rate Greater Than 89 mL/min (>89); Glucose,Random 82 mg/dL (74-106); Potassium 3.7 meq/L (3.5-5.1); Sodium 142 meq/L (136-145)
[2018-07-12 08:29] LABS: Alkaline Phosphatase 79 U/L (45-117); Total Protein 6.6 g/dL (6.4-8.2)
[2018-07-12] MEDS ORDERED: Hydrocortisone Sod Succinate 100 MG Vial IV.PUSH SCH ×2 (09:00→09:15)
[2018-07-12] MEDS: levETIRAcetam 500 MG Tablet PO SCH (09:23)
[2018-07-12] MEDS: Dextrose 5% in Water Inj 1,000 ML IV.CONT SCH ×3 (09:31→22:06)
[2018-07-12] MEDS: Senna/Docusate Sodium 8.6/50 MG Tablet PO SCH ×2 (09:35→21:19)
[2018-07-12] MEDS: QUEtiapine 25 MG Tablet PO SCH ×2 (09:36→21:18)
[2018-07-12] MEDS: levETIRAcetam 1000mg/100mL Inj 100 ML IV.SIG SCH ×2 (09:45→22:07)
[2018-07-12 14:46] LABS: Hepatitits B Surface Antigen Nonreactive (Nonreactive)
[2018-07-12] MEDS: Hydrocortisone Sod Succinate 100 MG Vial IV.PUSH SCH ×2 (15:06→21:17)
--- NOTE | 2018-07-12 15:06 | P.PNFP ---
Subjective Interval history: since yesterday, abdominal pain improving some and vomiting improving as well but still some persistent pain and nausea. no headache today. less diaphoretic Results - Labs Result diagrams: 07/12/18 07:10 07/12/18 07:10 Abnormal lab results 07/11/18 07/11/18 07/11/18 Range/Units 17:58 17:58 18:36 [place] % (Auto) 9.2 H (0.0-8.0) % Estimated GFR 76 L (>89) mL/min Random Glucose 72 L (74-106) mg/dL AST (15-37) U/L ALT (10-53) U/L Troponin I Less than 0.02 L (0.02-0.05) ng/mL Urine Mucus Few H (Occasional) /lpf 07/12/18 07/12/18 Range/Units 07:10 07:10 [place] % (Auto) 8.6 H (0.0-8.0) % Estimated GFR (>89) mL/min Random Glucose (74-106) mg/dL AST 200 H (15-37) U/L ALT 158 H (10-53) U/L Troponin I (0.02-0.05) ng/mL Urine Mucus (Occasional) /lpf Short CBC 07/11/18 07/12/18 Range/Units 17:58 07:10 WBC 6.3 7.1 (4.0-11.0) th/mm3 Hgb 14.4 12.8 (11.6-15.3) gm/dL Hct 43.2 38.7 (35.0-46.0) % Plt Count 319 275 (150-450) th/mm3 BMP 07/11/18 07/12/18 17:58 07:10 Sodium 138 142 Potassium 4.0 3.7 Chloride 102 105 Carbon Dioxide 29.3 31.9 BUN 14 10 Creatinine 0.92 0.77 Calcium 9.3 8.6 Cardiac Enzymes 07/11/18 07/11/18 Range/Units 17:58 17:58 Total Creatine Kinase 51 Cancelled (26-192) U/L Troponin I Less than 0.02 L (0.02-0.05) ng/mL Liver Function 07/11/18 07/12/18 Range/Units 17:58 07:10 Total Bilirubin 0.2 0.2 (0.2-1.0) mg/dL AST 23 200 H (15-37) U/L ALT 40 158 H (10-53) U/L Alkaline Phosphatase 82 79 (45-117) U/L Albumin 4.2 3.7 (3.4-5.0) g/dL Urine 07/11/18 Range/Units 18:36 Urine Color Straw (Yellw/Straw) Urine Clarity Clear (Clear) Urine pH 6.0 (5.0-8.5) Ur Specific Mobile 1.004 (1.002-1.035) Urine Protein Negative (Neg-Trace) mg/dL Urine Glucose (UA) Negative (Negative) mg/dL - Imaging Impressions Chest X-Ray 07/11/18 17:48 CONCLUSION: No acute findings. Elevated right hemidiaphragm. Abdomen X-Ray 07/12/18 00:00 CONCLUSION: Radiographically benign abdomen without obstruction or pneumoperitoneum. Physical Exam Vital signs: Vital Signs 07/11/18 16:51 07/11/18 17:48 07/11/18 19:00 Temperature 97.4 F L Pulse Rate 98 H 78 Respiratory Rate 20 16 Blood Pressure 138/63 109/67 Pulse Oximetry 100 97 99 07/11/18 21:00 07/11/18 21:53 07/11/18 23:47 Temperature 98.3 F 98.1 F Pulse Rate 84 80 83 Respiratory Rate 16 20 16 Blood Pressure 119/77 120/72 110/69 Pulse Oximetry 98 97 95 07/12/18 04:00 07/12/18 07:39 07/12/18 11:50 Temperature 98.1 F 98.1 F 98.2 F Pulse Rate 77 85 94 H Respiratory Rate 12 16 Blood Pressure 111/66 100/58 L 91/57 L Pulse Oximetry 99 97 99 Intake & Output 07/11/18 07/12/18 07/12/18 18:59 06:59 18:59 Intake Total 2039 400 / 400 Balance 2039 400 / 400 Weight 72.575 kg 72.58 kg Intake: IV 1100 / 1100 400 / 400 LR 1000 mL Inj 1,000 ML @ 100 300 / 300 mls/hr IV.CONT .Q10H VINCENT Rx#: [id number] NS Inj 1,000 ML @ Wide Open IV. 1000 / 1000 SIG BOLUS ONE Rx#:[id number] Keppra 1000 mg/100 mL Premix 100 / 100 100 / 100 100 ML @ 400 mls/hr IV.SIG Q12H VINCENT Rx#:[id number] Oral 240 / 240 Other 700 / 700 Other: Other Intake Source Saline Solution # Emeses 2 Weight On Admission 72.575 kg - Constitutional no acute distress, average body habitus, diaphoretic - Routine HEENT Exam Head: Present: normocephalic, atraumatic Eye: Present: EOMI, PERRL ENT: Present: mucous membranes moist - Routine Neck Exam Present: supple, full ROM - Routine Respiratory Exam Present: CTA bilaterally. Absent: accessory muscle use, rhonchi, stridor, wheezes - Routine Cardiovascular Exam Present: RRR, S1, S2 - Routine Abdominal Exam Present: soft, normoactive bowel sounds. Absent: tenderness, distended, rebound , guarding - Routine Extremities Exam Present: normal capillary refill. Absent: cyanosis, clubbing, edema - Routine Skin Exam Present: intact. Absent: cyanosis, erythema - Routine Neurological Exam Present: alert, oriented X3 (soft speech but fluent) - Routine Psychiatric Exam Present: normal affect, normal thought process Assessment and Plan - Assessment (1) Nausea & vomiting Code(s): R11.2 - Nausea with vomiting, unspecified Status: Acute (2) Seizure Code(s): R56.9 - Unspecified convulsions Status: Acute (3) Chest pain, rule out acute myocardial infarction Code(s): R07.9 - Chest pain, unspecified Status: Acute (4) Syncope Code(s): R55 - Syncope and collapse Status: Acute Plan: . (5) Adrenal insufficiency Code(s): E27.40 - Unspecified adrenocortical insufficiency Status: Chronic (6) Abdominal pain Code(s): R10.9 - Unspecified abdominal pain Status: Acute (7) Hypothyroid Code(s): E03.9 - Hypothyroidism, unspecified Status: Chronic (8) Gastroparesis Code(s): K31.84 - Gastroparesis Status: Chronic (9) Bipolar 2 disorder, major depressive episode Code(s): F31.81 - Bipolar II disorder Status: Chronic (10) DVT prophylaxis Status: Acute Plan: lovenox (11) Nutrition, metabolism, and development symptoms Code(s): R63.8 - Other symptoms and signs concerning food and fluid intake Status: Acute Plan: FEN: - IV LR @ 110 ml/hr - Monitor replace electrolytes as needed - Clear liquids diet, advance as tolerated PPX: - Lovenox 40mg daily for DVT ppx - Bilateral lower extremity SCDs - Protonix 40mgs daily for GI ppx - Assessment and Plan 1. Adrenal Insufficiency with concern for crisis s/p hydrocortisone bolus cortisol levels low X 2 even after replacement continue IV replacement and IVF with glucose check random ACTH, HIV no electrolyte reason at the moment for fludricortisone but will add if needed Needs outpatient endocrine follow up, will taper steroids before d/c 2. Gastroparesis Will control with scheduled phenergan to start and add reglan as needed PRN ( expect to be effective but use second line with hx of hyperprolactinemia as already on seroquel). Continue IVF, likely large contributor to hypotension 3. Seizure d/o uncontrolled likely 2/2 inability to tolerate PO meds keppra level pending IV keppra for now 4. Abdominal pain likely some combo of problems 1 and 2 but if not continuing to improve will get CT A/P 5. Transaminitis may be 2/2 cyclic vomiting/gastroparesis check hep panel, tylenol level and low threshold for imaging as above 6. Migraines cont pain control, anti emetics as above if headaches become persistent problem may get MRI brain, especially if prolactin considerably elevated again, may be helpful if signs point to secondary cause. 7. Hypothyroid TFTs nl, cont home replacement 8. Syncope likely 2/2 hypotension with AI + hypovolemia from cyclic vomiting monitor here with tele and treat above 9. Bipolar home meds for now (1) Nausea & vomiting Qualifiers: Vomiting Intractability: intractable (4) Syncope Qualifiers: Syncope type: unspecified Qualified Code(s): R55 - Syncope and collapse (6) Abdominal pain Qualifiers: Abdominal location: left lower quadrant Qualified Code(s): R10.32 - Left lower quadrant pain (7) Hypothyroid Qualifiers: Hypothyroidism type: unspecified Qualified Code(s): E03.9 - Hypothyroidism, unspecified
[2018-07-12] MEDS: Acetaminophen 325 MG Tablet PO PRN (15:07)
[2018-07-12 15:16] LABS: Hepatitis A IgM Antibody Nonreactive (Nonreactive)
--- NOTE | 2018-07-12 16:45 | ECG ---
Date Performed: 07/11/2018 Time Performed: 18:02:14 PTAGE: 23 years EKG: Sinus rhythm POSSIBLE LEFT ATRIAL ENLARGEMENT BORDERLINE ECG Persistent nonspecific ST-T changes, but possibly no rmal for age. PREVIOUS TRACING : 12/23/2002 23.47.00 DOCTOR: Polo Clark Interpretating Date/Time 07/12/2018 16:44:29
[2018-07-12] MEDS ORDERED: QUETIAPINE 150 MG PO SCH (18:00)
[2018-07-12] MEDS ORDERED: Butalbital/APAP/Caff 50/325/40 MG Tablet PO ONE (20:00)
[2018-07-13] MEDS: Enoxaparin Inj 40 MG/0.4 ML Syringe SQ SCH (00:25)
[2018-07-13] MEDS: Dextrose 5% in Water Inj 1,000 ML IV.CONT SCH ×4 (06:21→20:43)
[2018-07-13] MEDS: Hydrocortisone Sod Succinate 100 MG Vial IV.PUSH SCH (06:21)
[2018-07-13 07:31] LABS: Baso % (Auto) 0.4 % (0.0-2.0); Eos % (Auto) 0.5 % (0.0-4.0); Hematocrit 36.7 % (35.0-46.0); Hemoglobin 12.3 gm/dL (11.6-15.3); Lymph # (Auto) 1.9 th/mm3 (1.0-4.8); Lymph % (Auto) 28.1 % (9.0-44.0); Mean Corpuscular HGB Conc 33.5 % (32.0-36.0); Mean Corpuscular Hemoglobin 28.8 pg (27.0-34.0); Mean Platelet Volume 7.4 fL (7.0-11.0); Mono # (Auto) 0.6 th/mm3 (0.0-0.9); Mono % (Auto) 9.1 % (0.0-8.0); Neut # (Auto) 4.1 th/mm3 (1.8-7.7); Neut % (Auto) 61.9 % (16.0-70.0); Platelet Count 273 th/mm3 (150-450); Red Blood Count 4.27 mil/mm3 (4.00-5.30); Red Cell Distribution Width 14.2 % (11.6-17.2); White Blood Count 6.6 th/mm3 (4.0-11.0)
[2018-07-13 08:11] LABS: Albumin 3.6 g/dL (3.4-5.0); Anion Gap 7 meq/L (5-15); Aspartate Aminotransferase 50 U/L (15-37); Blood Urea Nitrogen 10 mg/dL (7-18); Calcium 8.2 mg/dL (8.5-10.1); Carbon Dioxide 27.1 meq/L (21.0-32.0); Chloride 105 meq/L (98-107); Glomerular Filtration Rate Greater Than 89 mL/min (>89); Glucose,Random 83 mg/dL (74-106); Potassium 3.3 meq/L (3.5-5.1); Sodium 139 meq/L (136-145)
[2018-07-13 08:12] LABS: Alanine Aminotransferase 95 U/L (10-53)
[2018-07-13 08:14] LABS: Alkaline Phosphatase 73 U/L (45-117); Total Protein 6.6 g/dL (6.4-8.2)
[2018-07-13] MEDS: Acetaminophen 325 MG Tablet PO PRN (09:35)
[2018-07-13] MEDS: Senna/Docusate Sodium 8.6/50 MG Tablet PO SCH ×2 (09:36→20:26)
[2018-07-13] MEDS: QUEtiapine 25 MG Tablet PO SCH ×2 (09:36→20:28)
--- NOTE | 2018-07-13 09:44 | P.PNFP ---
Subjective Interval history: Patient seen and examined this morning. Patient states that she is feeling better compared to admission. Does note continued nausea and admits to vomiting once overnight. She declines increasing nausea medication at this time. She also admits to continued dull, sometimes sharp, epigastric and lower left quadrant abdominal pain. Patient admits to having a bowel movement last night, nonbloody. And notes that the lower left quadrant pain was not relieved with bowel movement. No obvious triggers causing the left lower quadrant pain including movement, eating or drinking. She also admits to a mild dull, diffuse headache. She states that she has taken Fioricet in the past for headaches and states that the Fioricet she was given over night, helped ameliorate the pain somewhat. Denies vision changes, sweating episodes, dizziness, shortness of breath, chest pain, leg pain or swelling. All questions answered. <Maricarmen Perez - 07/13/18 19:42> Results - Labs Result diagrams: 07/13/18 06:37 07/13/18 06:37 <Jose Carlos Davies - 07/13/18 21:16> Abnormal lab results 07/11/18 07/12/18 07/13/18 Range/Units 17:58 12:12 06:37 [place] % (Auto) 9.1 H (0.0-8.0) % Potassium (3.5-5.1) meq/L Calcium (8.5-10.1) mg/dL Total Bilirubin (0.2-1.0) mg/dL AST (15-37) U/L ALT (10-53) U/L Prolactin 39 H (4.8 - 23.3) ng/mL Levetiracetam 4.1 L (12.0 - 46.0) mcg/mL 07/13/18 Range/Units 06:37 [place] % (Auto) (0.0-8.0) % Potassium 3.3 L (3.5-5.1) meq/L Calcium 8.2 L (8.5-10.1) mg/dL Total Bilirubin 0.1 L (0.2-1.0) mg/dL AST 50 H (15-37) U/L ALT 95 H (10-53) U/L Prolactin (4.8 - 23.3) ng/mL Levetiracetam (12.0 - 46.0) mcg/mL Short CBC 07/13/18 Range/Units 06:37 WBC 6.6 (4.0-11.0) th/mm3 Hgb 12.3 (11.6-15.3) gm/dL Hct 36.7 (35.0-46.0) % Plt Count 273 (150-450) th/mm3 BMP 07/13/18 06:37 Sodium 139 Potassium 3.3 L Chloride 105 Carbon Dioxide 27.1 BUN 10 Creatinine 0.68 Calcium 8.2 L Liver Function 07/13/18 Range/Units 06:37 Total Bilirubin 0.1 L (0.2-1.0) mg/dL AST 50 H (15-37) U/L ALT 95 H (10-53) U/L Alkaline Phosphatase 73 (45-117) U/L Albumin 3.6 (3.4-5.0) g/dL <Jose Carlos Davies - 07/13/18 21:16> Abnormal lab results 07/12/18 07/12/18 07/13/18 Range/Units 07:10 12:12 06:37 [place] % (Auto) 9.1 H (0.0-8.0) % Potassium (3.5-5.1) meq/L Calcium (8.5-10.1) mg/dL Total Bilirubin (0.2-1.0) mg/dL AST (15-37) U/L ALT (10-53) U/L Prolactin 39 H (4.8 - 23.3) ng/mL Acetaminophen Less than 2.0 L (10.0-30.0) mcg/mL 07/13/18 Range/Units 06:37 [place] % (Auto) (0.0-8.0) % Potassium 3.3 L (3.5-5.1) meq/L Calcium 8.2 L (8.5-10.1) mg/dL Total Bilirubin 0.1 L (0.2-1.0) mg/dL AST 50 H (15-37) U/L ALT 95 H (10-53) U/L Prolactin (4.8 - 23.3) ng/mL Acetaminophen (10.0-30.0) mcg/mL Short CBC 07/13/18 Range/Units 06:37 WBC 6.6 (4.0-11.0) th/mm3 Hgb 12.3 (11.6-15.3) gm/dL Hct 36.7 (35.0-46.0) % Plt Count 273 (150-450) th/mm3 BMP 07/13/18 06:37 Sodium 139 Potassium 3.3 L Chloride 105 Carbon Dioxide 27.1 BUN 10 Creatinine 0.68 Calcium 8.2 L Liver Function 07/13/18 Range/Units 06:37 Total Bilirubin 0.1 L (0.2-1.0) mg/dL AST 50 H (15-37) U/L ALT 95 H (10-53) U/L Alkaline Phosphatase 73 (45-117) U/L Albumin 3.6 (3.4-5.0) g/dL <Maricarmen Perez - 07/13/18 09:44> - Imaging Impressions Abdomen/Pelvis CT 07/13/18 00:00 CONCLUSION: 1. Small hemorrhagic cyst/functional follicle left ovary measures 15 mm. 2. No acute inflammatory process. 3. Status post cholecystectomy. <Jose Carlos Davies - 07/13/18 21:16> Physical Exam Vital signs: Vital Signs 07/13/18 00:00 07/13/18 04:00 07/13/18 07:27 Temperature 97.5 F L Pulse Rate 89 74 64 Respiratory Rate 16 16 20 Blood Pressure 108/64 101/61 109/60 Pulse Oximetry 96 99 99 07/13/18 12:26 07/13/18 16:00 07/13/18 18:20 Temperature 97.8 F 97.5 F L 98.3 F Pulse Rate 66 97 H 85 Respiratory Rate 16 16 17 Blood Pressure 109/55 L 112/66 112/69 Pulse Oximetry 94 L 97 98 Intake & Output 07/13/18 07/13/18 07/14/18 06:59 18:59 06:59 Intake Total 3320 / 3320 1100 / 1100 300 / 300 Balance 3320 / 3320 1100 / 1100 300 / 300 Intake: IV 1500 / 1500 1100 / 1100 300 / 300 D5W Inj 1,000 ML @ 110 mls/hr 1400 / 1400 1000 / 1000 300 / 300 IV.CONT .Q9H6M [facility] Rx#:[id number] Keppra 1000 mg/100 mL Premix 100 / 100 100 / 100 100 ML @ 400 mls/hr IV.SIG Q12H [facility] Rx#:[id number] Oral 320 / 320 Other 1500 / 1500 Other: Other Intake Source Saline Solution # Voids 3 <Jose Carlos Davies K - 07/13/18 21:16> Vital Signs 07/12/18 11:50 07/12/18 16:00 07/12/18 20:00 Temperature 98.2 F 98.5 F 98.7 F Pulse Rate 94 H 89 82 Respiratory Rate 14 16 Blood Pressure 91/57 L 108/60 103/57 L Pulse Oximetry 99 97 100 07/13/18 00:00 07/13/18 04:00 07/13/18 07:27 Temperature 97.5 F L Pulse Rate 89 74 64 Respiratory Rate 16 16 20 Blood Pressure 108/64 101/61 109/60 Pulse Oximetry 96 99 99 Intake & Output 07/12/18 07/13/18 07/13/18 18:59 06:59 18:59 Intake Total 1000 / 1000 3320 / 3320 Balance 1000 / 1000 3320 / 3320 Intake: IV 1000 / 1000 1500 / 1500 D5W Inj 1,000 ML @ 110 mls/hr 600 / 600 1400 / 1400 IV.CONT .Q9H6M [facility] Rx#:[id number] LR 1000 mL Inj 1,000 ML @ 100 300 / 300 mls/hr IV.CONT .Q10H [facility] Rx#: [id number] Keppra 1000 mg/100 mL Premix 100 / 100 100 / 100 100 ML @ 400 mls/hr IV.SIG Q12H [facility] Rx#:[id number] Oral 320 / 320 Other 1500 / 1500 Other: Other Intake Source Saline Solution # Voids 3 <Maricarmen Perez - 07/13/18 09:44> Narrative: GENERAL: Young tired appearing female, laying in bed, in no acute distress. SKIN: No rashes. Warm and dry. HEAD: Atraumatic. Normocephalic. EYES: EOMI. Pupils equal and round. No scleral icterus. No injection or drainage. CARDIOVASCULAR: Regular rate and rhythm. RESPIRATORY: No accessory muscle use. Clear to auscultation. Breath sounds equal bilaterally. GASTROINTESTINAL: Abdomen soft, tender to palpation over epigastric and left lower quadrant, nondistended. Hepatic and splenic margins not palpable. MUSCULOSKELETAL: Extremities without clubbing, cyanosis, or edema. No obvious deformities. NEUROLOGICAL: Awake and alert. No obvious cranial nerve deficits. Motor grossly within normal limits. Normal speech. PSYCHIATRIC: Appropriate mood and affect; insight and judgment normal. <Maricarmen Perez - 07/13/18 19:42> Assessment and Plan - Assessment (1) Abdominal pain Code(s): R10.9 - Unspecified abdominal pain Status: Acute (2) Nausea & vomiting Code(s): R11.2 - Nausea with vomiting, unspecified Status: Acute (3) Gastroparesis Code(s): K31.84 - Gastroparesis Status: Chronic (4) Adrenal insufficiency Code(s): E27.40 - Unspecified adrenocortical insufficiency Status: Chronic (5) Transaminitis Code(s): R74.0 - Nonspecific elevation of levels of transaminase and lactic acid dehydrogenase [LDH] Status: Acute (6) Headache Code(s): R51 - Headache Status: Acute (7) Seizure Code(s): R56.9 - Unspecified convulsions Status: Resolved (8) Chest pain, rule out acute myocardial infarction Code(s): R07.9 - Chest pain, unspecified Status: Resolved (9) Hypothyroid Code(s): E03.9 - Hypothyroidism, unspecified Status: Chronic (10) Bipolar 2 disorder, major depressive episode Code(s): F31.81 - Bipolar II disorder Status: Chronic (11) DVT prophylaxis Status: Acute (12) Nutrition, metabolism, and development symptoms Code(s): R63.8 - Other symptoms and signs concerning food and fluid intake Status: Acute <MannymaryJose Carlos - 07/13/18 21:16> (1) Abdominal pain Code(s): R10.9 - Unspecified abdominal pain Status: Acute Plan: Patient with acute on chronic left lower quadrant abdominal pain, tenderness on palpation on physical exam. Chronic gastroparesis vs. Post-surgical adhesions causing bowel obstruction. -Beta hCG WNL -Abdominal x-ray showed no evidence of pneumoperitoneum or bowel obstruction. -CT abd/pelvis ordered on 07/13 due to worsening LLQ and Epigastric abdominal pain. -Tylenol 650 mg PO every 6 hours PRN pain scale 1-2 -Ibuprofen 400mg PO every 4 hours PRN pain scale 3-5 -Morphine 2 mg IV every 3 hours PRN pain scale 6-10 -Morphine 1mg IV every 3 hrs PRN breakthrough pain (2) Nausea & vomiting Code(s): R11.2 - Nausea with vomiting, unspecified Status: Acute Plan: -Liquid diet, advance as tolerated -Phenergan 25 mg IM every 6 as needed -Phenergan suppository 25 mg every 6 as needed -May consider adding Reglan if patient continues to having increasing nausea (3) Gastroparesis Code(s): K31.84 - Gastroparesis Status: Chronic Plan: see plan for N/V above (4) Adrenal insufficiency Code(s): E27.40 - Unspecified adrenocortical insufficiency Status: Chronic Plan: hx of adrenal insufficiency with concerns for adrenal crisis. Patient received 100 mg of hydrocortisone IV on the ED Cortisol level on admission 1.9, correlated with a low value as taking in the afternoon normal reference is 3.116.7. -Repeat random cortisol level 1.5, s/p hydrocortisone administration -ACTH level ordered -HIV negative -Hydrocortisone 25 mg TID changed to Hydrocortisone 20 mg qAM and 10 mg qPM, scheduled to start on 07/13 in the evening. -Patient will require an outpatient endocrine follow up (5) Transaminitis Code(s): R74.0 - Nonspecific elevation of levels of transaminase and lactic acid dehydrogenase [LDH] Status: Acute Plan: -Hepatitis panel non-reactive -Tylenol level less than 2 -Continue IVF as above (6) Headache Code(s): R51 - Headache Status: Acute Plan: complaints of mild, dull, diffuse headache. Migraine vs. secondary to continued vomiting. -Pain control and antiemetics as above -if headaches become persistent problem may get MRI brain, especially if prolactin considerably elevated again, may be helpful if signs point to secondary cause. (7) Seizure Code(s): R56.9 - Unspecified convulsions Status: Resolved Plan: likely secondary to inability to tolerate PO medications -Patient received loading dose of 1000 mg IV of Keppra in the ED -Continue home medication Keppra 1000 mg p.o. twice daily -Keppra level 4.1, low -Seizure precautions (8) Chest pain, rule out acute myocardial infarction Code(s): R07.9 - Chest pain, unspecified Status: Resolved Plan: Likely associated with syncopal episodes. Patient also states painful due to severe vomiting -Troponins negative x1 -EKG with sinus rhythm, no ST elevation changes, possible left atrial enlargement (9) Hypothyroid Code(s): E03.9 - Hypothyroidism, unspecified Status: Chronic Plan: Chronic, patient has been taking 25 mcg of levothyroxine before during and after her . -TSH WNL -T4 mildly elevated -Continue 25 mcg levothyroxine for now (10) Bipolar 2 disorder, major depressive episode Code(s): F31.81 - Bipolar II disorder Status: Chronic Plan: Chronic, stable. -Continue escitalopram 20 mg p.o. daily -Continue Seroquel at 150 mg p.o. daily (11) DVT prophylaxis Status: Acute Plan: lovenox (12) Nutrition, metabolism, and development symptoms Code(s): R63.8 - Other symptoms and signs concerning food and fluid intake Status: Acute Plan: FEN: - IV LR @ 110 ml/hr - Monitor replace electrolytes as needed - Clear liquids diet, advance as tolerated PPX: - Lovenox 40mg daily for DVT ppx - Bilateral lower extremity SCDs - Protonix 40mgs daily for GI ppx <Maricarmen Perez - 07/13/18 21:00> - Assessment and Plan dw Keke Wyatt and Dr. West <Maricarmen Perez 07/13/18 19:42> Discharge Planning: Case management contacted to help patient establish outpatient follow up. Due to current Medicaid status, patient is able to follow up for primary care at [facility], who would be able to refer her to an [facility] as needed. <Maricarmen Perez - 07/13/18 19:42> - Attending Attestation The exam, history, and the medical decision-making described in the above note were completed with the assistance of the resident physician. I reviewed and agree with the findings presented. I attest that I had a [id number] encounter with the patient on the same day, and personally performed and documented my assessment and findings in the medical record. looked better this AM and felt better. headache mild only, nausea mild, abd pain improving but not resolved, will get CT A/P Will see how she does transitioning to PO hydrocortisone and anti emetics and try to discharge in next 1-2 days <Jose Carlos Davies - 07/13/18 21:16> <González Maricarmen Hein - Last Filed: 07/13/18 21:00> (1) Abdominal pain Qualifiers: Abdominal location: left lower quadrant Qualified Code(s): R10.32 - Left lower quadrant pain (2) Nausea & vomiting Qualifiers: Vomiting Intractability: intractable (9) Hypothyroid Qualifiers: Hypothyroidism type: unspecified Qualified Code(s): E03.9 - Hypothyroidism, unspecified <Jose Carlos Davies K - Last Filed: 07/13/18 21:16> (1) Abdominal pain Qualifiers: Abdominal location: left lower quadrant Qualified Code(s): R10.32 - Left lower quadrant pain (2) Nausea & vomiting Qualifiers: Vomiting Intractability: intractable (9) Hypothyroid Qualifiers: Hypothyroidism type: unspecified Qualified Code(s): E03.9 - Hypothyroidism, unspecified <González Maricarmen Hein - Last Filed: 07/13/18 21:00> (1) Abdominal pain Qualifiers: Abdominal location: left lower quadrant Qualified Code(s): R10.32 - Left lower quadrant pain (2) Nausea & vomiting Qualifiers: Vomiting Intractability: intractable (9) Hypothyroid Qualifiers: Hypothyroidism type: unspecified Qualified Code(s): E03.9 - Hypothyroidism, unspecified <Jose Carlos Davies - Last Filed: 07/13/18 21:16> (1) Abdominal pain Qualifiers: Abdominal location: left lower quadrant Qualified Code(s): R10.32 - Left lower quadrant pain (2) Nausea & vomiting Qualifiers: Vomiting Intractability: intractable (9) Hypothyroid Qualifiers: Hypothyroidism type: unspecified Qualified Code(s): E03.9 - Hypothyroidism, unspecified
[2018-07-13] MEDS: levETIRAcetam 1000mg/100mL Inj 100 ML IV.SIG SCH ×2 (10:24→22:16)
[2018-07-13] MEDS ORDERED: Morphine Inj 4 MG/ML Vial IV.PUSH PRN ×2 (14:55)
[2018-07-13] MEDS ORDERED: Naloxone Inj 0.4 MG/ML Vial IV.PUSH PRN ×2 (14:55→14:59)
[2018-07-13] MEDS ORDERED: Ibuprofen 400 MG Tablet PO PRN (14:59)
[2018-07-13] MEDS ORDERED: Diatrizoate Meglum/Diatrizoate Sod Liq 9 ML UDC PO ONE (15:03)
[2018-07-13] MEDS ORDERED: Hydrocortisone 10 MG Tablet PO SCH (16:00)
--- NOTE | 2018-07-13 19:57 | CT ---
EXAM DATE: 07/13/2018 7:51 PM EST AGE/SEX: 23 years / Female INDICATIONS: Left side abdomen pain. CLINICAL DATA: This is the patient's initial encounter. Patient reports that signs and symptoms have been present for 1 day and indicates a pain score of 5/10. MEDICAL/SURGICAL HISTORY: Gastroparesis. Seizures. Cholecystectomy. section. ORAL CONTRAST: Prescribed oral contrast ingested. RADIATION DOSE: 7.89 CTDI (mGy) COMPARISON: No prior exams available for comparison. TECHNIQUE: Multiple contiguous axial images were obtained through the abdomen and pelvis following b olus infusion of 97 ml Omnipaque 350 (iohexol) nonionic water-soluble contrast as a single exam dos e. Prescribed oral contrast ingested. Using automated exposure control and adjustment of the mA and/ or kV according to patient size, radiation dose was kept as low as reasonably achievable to obtain op timal diagnostic quality images. DICOM format image data is available electronically for review and comparison. FINDINGS: Lower Lungs: The visualized lower lungs are clear. Liver: The liver has a homogeneous density without space-occupying lesion. There is no dilation of th e biliary tree. Cholecystectomy clips. Spleen: Homogeneous density without enlargement. Pancreas: Unremarkable without mass or calcification. Kidneys: Normal in size and shape. No evidence of mass or hydronephrosis. Adrenal Glands: Unremarkable. Aorta: The aorta and proximal iliac vessels are grossly unremarkable without aneurysmal dilation. Bowel/Mesentery: The bowel loops are grossly unremarkable. The cecum and sigmoid colon have a normal configuration. Abdominal Wall: Intact. Retroperitoneum: No evidence of adenopathy in the retrocrural, para-aortic, or deep pelvic regions. Bladder: Contours are smooth. Reproductive Organs: Small hemorrhagic cyst/functional follicle left ovary measures 15 mm. Inguinal: The inguinal region is unremarkable without evidence of adenopathy. Bony Structures: Unremarkable. Other: Stranding along the anterior pelvic wall likely related to previous surgery/. CONCLUSION: 1. Small hemorrhagic cyst/functional follicle left ovary measures 15 mm. 2. No acute inflammatory process. 3. Status post cholecystectomy. Electronically signed by: Addy Ybarra MD Board Certified Radiologist 07/13/2018 7:55 PM EST
[2018-07-14] MEDS: Enoxaparin Inj 40 MG/0.4 ML Syringe SQ SCH (01:08)
[2018-07-14] MEDS: Dextrose 5% in Water Inj 1,000 ML IV.CONT SCH (06:06)
[2018-07-14] MEDS ORDERED: Hydrocortisone 10 MG Tablet PO SCH (08:00)
[2018-07-14] MEDS: Senna/Docusate Sodium 8.6/50 MG Tablet PO SCH (08:50)
[2018-07-14] MEDS: QUEtiapine 25 MG Tablet PO SCH (08:50)
[2018-07-14] MEDS ORDERED: Potassium Chloride 25 MEQ Effervescent Tablet PO SCH (09:00)
--- NOTE | 2018-07-14 09:43 | P.PNFP ---
Subjective Interval history: Patient seen and examined. Patient complains of continued nausea, noting vomiting 2-3 times yesterday. She states that she was able to tolerate some fluids and Jell-O this morning without vomiting. Discussed transitioning her IV medications to p.o., and patient is agreeable with plan. She states that her 's [birth year] tomorrow and is motivated to return home within the next 24 hours. She continues to have constant epigastric abdominal pain, improved from yesterday afternoon, but still bothersome. She did not ask for any pain medication overnight. Denies headache, shortness of breath, chest pain, leg pain or swelling. Discussed importance of outpatient follow-up at [facility] or [facility] for continued management of chronic medical conditions. Discussed imaging and laboratory values, all questions answered. <Maricarmen Perez 07/14/18 10:18> Results - Labs Result diagrams: 07/13/18 06:37 07/13/18 06:37 <Jose Carlos Davies 07/14/18 11:45> Abnormal lab results 07/11/18 Range/Units 17:58 Levetiracetam 4.1 L (12.0 - 46.0) mcg/mL <Jose Carlos Davies 07/14/18 11:45> Abnormal lab results 07/11/18 Range/Units 17:58 Levetiracetam 4.1 L (12.0 - 46.0) mcg/mL <Maricarmen Perez 07/14/18 09:43> - Imaging Impressions Abdomen/Pelvis CT 07/13/18 00:00 CONCLUSION: 1. Small hemorrhagic cyst/functional follicle left ovary measures 15 mm. 2. No acute inflammatory process. 3. Status post cholecystectomy. <Jose Carlos Davies 07/14/18 11:45> Impressions Abdomen/Pelvis CT 07/13/18 00:00 CONCLUSION: 1. Small hemorrhagic cyst/functional follicle left ovary measures 15 mm. 2. No acute inflammatory process. 3. Status post cholecystectomy. <Maricarmen Perez 07/14/18 09:43> Physical Exam Vital signs: Vital Signs 07/13/18 12:26 07/13/18 16:00 07/13/18 18:20 Temperature 97.8 F 97.5 F L 98.3 F Pulse Rate 66 97 H 85 Respiratory Rate 16 16 17 Blood Pressure 109/55 L 112/66 112/69 Pulse Oximetry 94 L 97 98 07/13/18 19:32 07/14/18 00:25 07/14/18 08:00 Temperature 98 F 97.6 F 98.6 F Pulse Rate 82 88 75 Respiratory Rate 18 18 16 Blood Pressure 118/73 100/55 L 99/61 L Pulse Oximetry 100 97 99 Intake & Output 07/13/18 07/14/18 07/14/18 18:59 06:59 18:59 Intake Total 1100 / 1100 1720 / 1720 Balance 1100 / 1100 1720 / 1720 Intake: IV 1100 / 1100 1400 / 1400 D5W Inj 1,000 ML @ 110 mls/hr 1000 / 1000 1300 / 1300 IV.CONT .Q9H6M [facility] Rx#:[id number] Keppra 1000 mg/100 mL Premix 100 / 100 100 / 100 100 ML @ 400 mls/hr IV.SIG Q12H [facility] Rx#:[id number] Oral 320 / 320 Other: # Voids 2 # Bowel Movements 0 <Jose Carlos Davies - 07/14/18 11:45> Vital Signs 07/13/18 12:26 07/13/18 16:00 07/13/18 18:20 Temperature 97.8 F 97.5 F L 98.3 F Pulse Rate 66 97 H 85 Respiratory Rate 16 16 17 Blood Pressure 109/55 L 112/66 112/69 Pulse Oximetry 94 L 97 98 07/13/18 19:32 07/14/18 00:25 Temperature 98 F 97.6 F Pulse Rate 82 88 Respiratory Rate 18 18 Blood Pressure 118/73 100/55 L Pulse Oximetry 100 97 Intake & Output 07/13/18 07/14/18 07/14/18 18:59 06:59 18:59 Intake Total 1100 / 1100 1720 / 1720 Balance 1100 / 1100 1720 / 1720 Intake: IV 1100 / 1100 1400 / 1400 D5W Inj 1,000 ML @ 110 mls/hr 1000 / 1000 1300 / 1300 IV.CONT .Q9H6M [facility] Rx#:[id number] Keppra 1000 mg/100 mL Premix 100 / 100 100 / 100 100 ML @ 400 mls/hr IV.SIG Q12H [facility] Rx#:[id number] Oral 320 / 320 Other: # Voids 2 # Bowel Movements 0 <Maricarmen Perez - 07/14/18 09:43> Narrative: GENERAL: Young tired appearing female, laying in bed, in no acute distress. SKIN: No rashes. Warm and dry. HEAD: Atraumatic. Normocephalic. EYES: EOMI. Pupils equal and round. No scleral icterus. No injection or drainage. CARDIOVASCULAR: Regular rate and rhythm. RESPIRATORY: No accessory muscle use. Clear to auscultation. Breath sounds equal bilaterally. GASTROINTESTINAL: Abdomen soft, tender to palpation over epigastric and left lower quadrant, nondistended. Hepatic and splenic margins not palpable. MUSCULOSKELETAL: Extremities without clubbing, cyanosis, or edema. No obvious deformities. NEUROLOGICAL: Awake and alert. No obvious cranial nerve deficits. Motor grossly within normal limits. Normal speech. PSYCHIATRIC: Appropriate mood and affect; insight and judgment normal. <Maricarmen Perez 07/14/18 10:18> Assessment and Plan - Assessment (1) Abdominal pain Code(s): R10.9 - Unspecified abdominal pain Status: Acute (2) Nausea & vomiting Code(s): R11.2 - Nausea with vomiting, unspecified Status: Acute (3) Gastroparesis Code(s): K31.84 - Gastroparesis Status: Chronic (4) Adrenal insufficiency Code(s): E27.40 - Unspecified adrenocortical insufficiency Status: Chronic (5) Transaminitis Code(s): R74.0 - Nonspecific elevation of levels of transaminase and lactic acid dehydrogenase [LDH] Status: Acute (6) Seizure Code(s): R56.9 - Unspecified convulsions Status: Resolved (7) Headache Code(s): R51 - Headache Status: Resolved (8) Chest pain, rule out acute myocardial infarction Code(s): R07.9 - Chest pain, unspecified Status: Resolved (9) Hypothyroid Code(s): E03.9 - Hypothyroidism, unspecified Status: Chronic (10) Bipolar 2 disorder, major depressive episode Code(s): F31.81 - Bipolar II disorder Status: Chronic (11) DVT prophylaxis Status: Acute (12) Nutrition, metabolism, and development symptoms Code(s): R63.8 - Other symptoms and signs concerning food and fluid intake Status: Acute <Jose Carlos Davies - 07/14/18 11:45> (1) Abdominal pain Code(s): R10.9 - Unspecified abdominal pain Status: Acute Plan: Patient with acute on chronic left lower quadrant abdominal pain, tenderness on palpation on physical exam. Chronic gastroparesis vs. Post-surgical adhesions causing bowel obstruction. -Beta hCG WNL -Abdominal x-ray showed no evidence of pneumoperitoneum or bowel obstruction. -CT abd/pelvis showed: Small hemorrhagic cyst/functional follicle left ovary measures 15 mm. No acute inflammatory process. Status post cholecystectomy. Stranding along the anterior pelvic wall likely related to previous surgery/C- section. Adrenal glands unremarkable. -Tylenol 650 mg PO every 6 hours PRN pain scale 1-2 -Ibuprofen 400mg PO every 4 hours PRN pain scale 3-5 -Morphine 2 mg IV every 3 hours PRN pain scale 6-10 -Morphine 1mg IV every 3 hrs PRN breakthrough pain (2) Nausea & vomiting Code(s): R11.2 - Nausea with vomiting, unspecified Status: Acute Plan: -Liquid diet, advance as tolerated -Phenergan 25 mg p.o. scheduled every 6 hours -Phenergan 25 mg IM every 6 hours as needed for intractable nausea, or inability to tolerate p.o. -Phenergan suppository 25 mg every 6 as needed (3) Gastroparesis Code(s): K31.84 - Gastroparesis Status: Chronic Plan: see plan for N/V above Will require outpatient GI follow-up (4) Adrenal insufficiency Code(s): E27.40 - Unspecified adrenocortical insufficiency Status: Chronic Plan: hx of adrenal insufficiency with concerns for adrenal crisis. Patient received 100 mg of hydrocortisone IV on the ED Cortisol level on admission 1.9, correlated with a low value as taking in the afternoon normal reference is 3.116.7. -Repeat random cortisol level 1.5, s/p hydrocortisone administration -ACTH level ordered -HIV negative -Hydrocortisone 20 mg qAM and 10 mg qPM -Patient will require an outpatient endocrine follow up (5) Transaminitis Code(s): R74.0 - Nonspecific elevation of levels of transaminase and lactic acid dehydrogenase [LDH] Status: Acute Plan: Resolving -Hepatitis panel non-reactive -Tylenol level less than 2 -Continue IVF as above (6) Seizure Code(s): R56.9 - Unspecified convulsions Status: Resolved Plan: likely secondary to inability to tolerate PO medications -Keppra level 4.1, low, consistent with history of intractable nausea and vomiting -Patient received loading dose of 1000 mg IV of Keppra in the ED -Continue home medication Keppra 1000 mg p.o. twice daily -Seizure precautions Will require outpatient neurology follow-up (7) Headache Code(s): R51 - Headache Status: Resolved Plan: complaints of mild, dull, diffuse headache. Migraine vs. secondary to continued vomiting. -Pain control and antiemetics as above -if headaches become persistent problem may get MRI brain, especially if prolactin considerably elevated again, may be helpful if signs point to secondary cause. (8) Chest pain, rule out acute myocardial infarction Code(s): R07.9 - Chest pain, unspecified Status: Resolved Plan: Likely associated with syncopal episodes. Patient also states painful due to severe vomiting -Troponins negative x1 -EKG with sinus rhythm, no ST elevation changes, possible left atrial enlargement (9) Hypothyroid Code(s): E03.9 - Hypothyroidism, unspecified Status: Chronic Plan: Chronic, patient has been taking 25 mcg of levothyroxine before during and after her . -TSH WNL -T4 mildly elevated -Continue 25 mcg levothyroxine for now (10) Bipolar 2 disorder, major depressive episode Code(s): F31.81 - Bipolar II disorder Status: Chronic Plan: Chronic, stable. -Continue escitalopram 20 mg p.o. daily -Continue Seroquel at 150 mg p.o. daily (11) DVT prophylaxis Status: Acute Plan: lovenox (12) Nutrition, metabolism, and development symptoms Code(s): R63.8 - Other symptoms and signs concerning food and fluid intake Status: Acute Plan: FEN: - IVF stopped - Monitor replace electrolytes as needed - Clear liquids diet, advance as tolerated PPX: - Lovenox 40mg daily for DVT ppx - Bilateral lower extremity SCDs - Protonix 40mgs daily for GI ppx <Maricarmen Perez - 07/14/18 10:42> - Assessment and Plan dw Keke Wyatt and Dr. West <Maricarmen Perez 07/14/18 10:43> Discharge Planning: Case management contacted to help patient establish outpatient follow up. Due to current Medicaid status, patient is able to follow up for primary care at [facility], who would be able to refer her to an manager pathology as needed. <Maricarmen Perez - 07/14/18 10:43> - Attending Attestation The exam, history, and the medical decision-making described in the above note were completed with the assistance of the resident physician. I reviewed and agree with the findings presented. I attest that I had a [id number] encounter with the patient on the same day, and personally performed and documented my assessment and findings in the medical record. Still overall doing better, BP holding on PO steroid dosing. N/V/Abd pain improved but no resolved, tolerating clear liquid PO. Will try to advance diet today and if tolerates likely home tomorrow. if she can tolerate a reasonable diet and does not require additional IM or IV anti-emetics could even go home this pm insurance good and should allow her to get outpatient endocrine, neuro, and GI f /u. will send home with home meds except increase hydrocortisone from 03/03 to . <Jose Carlos Davies - 07/14/18 11:45> <Maricarmen Perez - Last Filed: 07/14/18 10:42> (1) Abdominal pain Qualifiers: Abdominal location: left lower quadrant Qualified Code(s): R10.32 - Left lower quadrant pain (2) Nausea & vomiting Qualifiers: Vomiting Intractability: intractable (9) Hypothyroid Qualifiers: Hypothyroidism type: unspecified Qualified Code(s): E03.9 - Hypothyroidism, unspecified <Jose Carlos Davies - Last Filed: 07/14/18 11:45> (1) Abdominal pain Qualifiers: Abdominal location: left lower quadrant Qualified Code(s): R10.32 - Left lower quadrant pain (2) Nausea & vomiting Qualifiers: Vomiting Intractability: intractable (9) Hypothyroid Qualifiers: Hypothyroidism type: unspecified Qualified Code(s): E03.9 - Hypothyroidism, unspecified <Maricarmen Perez - Last Filed: 07/14/18 10:42> (1) Abdominal pain Qualifiers: Abdominal location: left lower quadrant Qualified Code(s): R10.32 - Left lower quadrant pain (2) Nausea & vomiting Qualifiers: Vomiting Intractability: intractable (9) Hypothyroid Qualifiers: Hypothyroidism type: unspecified Qualified Code(s): E03.9 - Hypothyroidism, unspecified <Jose Carlos Davies K - Last Filed: 07/14/18 11:45> (1) Abdominal pain Qualifiers: Abdominal location: left lower quadrant Qualified Code(s): R10.32 - Left lower quadrant pain (2) Nausea & vomiting Qualifiers: Vomiting Intractability: intractable (9) Hypothyroid Qualifiers: Hypothyroidism type: unspecified Qualified Code(s): E03.9 - Hypothyroidism, unspecified
[2018-07-14] MEDS ORDERED: levETIRAcetam 500 MG Tablet PO SCH (10:00)
[2018-07-14 11:11] VITALS: RESP 16; O2SAT 99
[2018-07-14 12:23] LABS: Albumin 3.6 g/dL (3.4-5.0); Anion Gap 10 meq/L (5-15); Aspartate Aminotransferase 25 U/L (15-37); Blood Urea Nitrogen 6 mg/dL (7-18); Calcium 8.5 mg/dL (8.5-10.1); Carbon Dioxide 25.5 meq/L (21.0-32.0); Chloride 106 meq/L (98-107); Glomerular Filtration Rate Greater Than 89 mL/min (>89); Glucose,Random 75 mg/dL (74-106); Potassium 3.3 meq/L (3.5-5.1); Sodium 141 meq/L (136-145)
[2018-07-14 12:25] LABS: Alanine Aminotransferase 65 U/L (10-53)
[2018-07-14 12:27] LABS: Alkaline Phosphatase 69 U/L (45-117); Total Protein 6.7 g/dL (6.4-8.2)
[2018-07-14 15:19] VITALS: BP 103/66; PULSE 85; TEMP 98.5
== END 2018-07-14 15:53 | disposition home or self-care (01) | DRG 644 ==
LOC: NEPE 16:48 → NEDA 16:48 → NEPFCDU 21:42 → H7ONC 07-13 16:52
PROVIDERS: ADMIT Family Medicine; ATTEND Family Medicine
CPT/HCPCS: 71010; 71045; 74000; 74018; 74177; 80053; 80074; 80177; 80299; 80307; 81001; 82024; 82491; 82533; 82550; 82948; 82962; 83690; 83735; 84146; 84439; 84443; 84484; 84702; 84703; 85025; 87389; 90761; 90774; 90775; 90784; 93005; 96361; 96374; 96375; 96376; 99285; C8952; G0378; J1650; J1720; J1953; J2270; J2405; J2550; J7030; J7070; J7120; Q0169; Q9963; Q9967